=== PATIENT | male | born 1960 | race African-American/Black ===

== ENCOUNTER 2017-08-28 15:18 | Emergency (ER) | payer MEDICAID ==
[~2017-08-28] VITALS: Ht 172.7 cm; Wt 63.5 kg
[2017-08-28 15:29] VITALS: BP 149/81
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
[2017-08-28] MEDS ORDERED: Methocarbamol 500mg tab ORAL ONE (16:00)
[2017-08-28] MEDS ORDERED: Acetaminophen 500mg (ES) tab ORAL ONE (16:00)
[2017-08-28] MEDS ORDERED: IBUPROFEN600 MG ORAL (16:10)
[2017-08-28] MEDS ORDERED: LIDOCAINE700 M1 TP (16:10)
[2017-08-28] MEDS ORDERED: METHOCARBAMOL500 MG ORAL (16:10)
[2017-08-28 17:20] VITALS: BP 149/81
== END 2017-08-28 17:20 | disposition home or self-care (01) ==
LOC: EMR 16:01
DX: M54.2 Cervicalgia (principal); M54.6 Pain in thoracic spine; V43.62XA Car passenger injured in collision with other type car in traffic accident, initial encounter; Y92.410 Unspecified street and highway as the place of occurrence of the external cause
CPT/HCPCS: 99284

== ENCOUNTER 2018-11-15 10:25 | Inpatient (IN) | payer MEDICAID, OTHER ==
[~2018-11-15] VITALS: Ht 172.7 cm; Wt 67.2 kg
--- NOTE | 2018-11-15 09:20 | NUR ---
NURSE NOTES: third unit of RBS being administered. will continue to monitor for transfusion reaction.
[~2018-11-15 10:25] MED LIST: IBUPROFEN600 MG ORAL; LIDOCAINE700 M1 TP; METHOCARBAMOL500 MG ORAL
--- NOTE | 2018-11-15 10:31 | NUR ---
ED Nurse Note: not found in waiting area.
[2018-11-15] MEDS ORDERED: NKM (10:39)
[2018-11-15 10:40] VITALS: BP 126/64
--- NOTE | 2018-11-15 10:40 | NUR ---
ED Nurse Note: PT WALKED IN TO ER TODAY FROM HOME. AOX4. PT C/O CHRONIC POSTERIOR NECK PAIN, 01/15. PT ALSO STATES HE HAS BEEN UNABLE TO MOVE HIS NECK UP X LAST WEEK. PT STATES HE WENT TO SEE HIS PMD FOR THIS LAST WEEK AND WAS TOLD TO GO TO THE ER FOR TREATMENT. PT PRESENTS WITH LARGE OPEN WOUND TO UPPER MEDIAL BACK/POSTERIOR LOWER NECK WHICH PT STATES HAS BEEN THERE FOR 3 YEARS. NO ACTIVE BLEEDING OR DRAINAGE NOTED. PT STATES IT STARTED A SKIN INFECTION BUT THAT HE NEVER WENT TO GET IT CHECKED.
[2018-11-15] MEDS ORDERED: ceFAZolin 1gm/50ml Premix 50 ML IV ONE (10:45)
[2018-11-15 11:06] LABS: HEMATOCRIT 15.3 % (42.0-52.0); MEAN CORPUSCULAR VOLUME 49 FL (80-99); PLATELET COUNT 428 K/UL (150-450); RED BLOOD COUNT 3.12 M/UL (4.70-6.10); WHITE BLOOD COUNT 8.2 K/UL (4.8-10.8)
--- NOTE | 2018-11-15 11:06 | NUR ---
ED Nurse Note: PT TO XRAY VIA [facility].
[2018-11-15 11:12] LABS: HEMOGLOBIN 3.7 G/DL (14.2-18.0)
--- NOTE | 2018-11-15 11:15 | NUR ---
ED Nurse INFORMED DR. NEWELL REGARDING THE H&H OF THE PT. UPGRADED FROM MS TO TELE
--- NOTE | 2018-11-15 11:20 | NUR ---
ED Nurse Note: EDWCP UPLOADED TO EMR.
--- NOTE | 2018-11-15 11:34 | NUR ---
ED Nurse Note: PT BACK FROM [facility]IA [facility].
[2018-11-15 11:52] LABS: ANION GAP 7 mmol/L (5-15); BLOOD UREA NITROGEN 12 mg/dL (7-18); CALCIUM 8.6 MG/DL (8.5-10.1); CARBON DIOXIDE 27 MMOL/L (21-32); CHLORIDE 100 MMOL/L (98-107); CREATININE 1.5 MG/DL (0.55-1.30); POTASSIUM 3.9 MMOL/L (3.5-5.1); SODIUM 134 MMOL/L (136-145)
[2018-11-15 11:56] LABS: ALANINE AMINOTRANSFERASE 12 U/L (12-78); ALKALINE PHOSPHATASE 57 U/L (46-116); ASPARTATE AMINO TRANSFERASE 12 U/L (15-37); BILIRUBIN,TOTAL 0.4 MG/DL (0.2-1.0)
[2018-11-15 12:01] VITALS: BP 118/59
[2018-11-15 12:01] LABS: ALBUMIN 2.6 G/DL (3.4-5.0)
--- NOTE | 2018-11-15 12:01 | Diagnostic Imaging Report ---
Indication: Cellulitis and the large ulceration in the posterior part of the neck. Findings: 3 views of the cervical spine were obtained. Technically the study is limited due to hyper flexion. The open-mouth views are nondiagnostic. There is a large area of soft tissue lucency injected the the posterior part of the neck at the level of the mid to lower cervical spine. The lucency is consistent with the given history of ulceration. There is adjacent surrounding soft tissue swelling. Findings consistent with cellulitis. There is generalized osseous demineralization noted. The cortical surface spinous processes are ill-defined and irregular as well. Not certain if this is in part degenerative or due to osteomyelitis. MRI could be done for further evaluation as warranted clinically. There is longitudinally oriented ossification projected over the spinous processes which may be ossification of the ligaments. Part of this could be on the basis of previous trauma. Moderate degenerative disease of the cervical spine noted. The patient's neck is flexed and as such the study is very limited with regard to evaluation for trauma. There is no history of trauma.. IMPRESSION: Very limited study due to flexion of the neck and suboptimal open mouth views. Large area of ulceration and evidence of cellulitis in the posterior part of the neck. Difficult to exclude possibility of osteomyelitis involving the posterior elements in the lower part of the cervical spine.
[2018-11-15 13:00] LABS: HEMATOCRIT 14.6 % (42.0-52.0); MEAN CORPUSCULAR VOLUME 49 FL (80-99); PLATELET COUNT 396 K/UL (150-450); RED BLOOD COUNT 2.99 M/UL (4.70-6.10); RED CELL DISTRIBUTION WIDTH 14.6 % (11.6-14.8); WHITE BLOOD COUNT 8.7 K/UL (4.8-10.8)
[2018-11-15 13:01] LABS: HEMOGLOBIN 3.6 G/DL (14.2-18.0)
[2018-11-15 13:46] VITALS: BP 114/62
--- NOTE | 2018-11-15 14:02 | Emergency Room Report ---
History of Present Illness General Chief Complaint: Wound Recheck/Suture Removal Source: Patient Present Illness HPI Patient is a poor historian. Patient has a history of a wound in his upper back and neck area. This is a chronic ulcer that is not healing. Patient states is progressively become worse. He does not have outpatient follow-up. States that he is not getting treatment with outpatient wound management. States that symptoms getting worse. In addition he complains of weakness. He denies any fever nausea vomiting diarrhea chills. No other complaints are noted. Symptoms noted to be moderate. No other modifying factors. No other associated signs and symptoms. No other complaints were noted. Allergies: Coded Allergies: No Known Allergies (Unverified , 08/28/17) Patient History Past Medical History: none, other - Chronic wound ulcer and neck and back Past Surgical History: none Pertinent Family History: none Social History: Denies: smoking, alcohol use, drug use Reviewed Nursing Documentation: PMH: Agreed; PSxH: Agreed Nursing Documentation-PMH Past Medical History: No Stated History Review of Systems All Other Systems: negative except mentioned in HPI Physical Exam Vital Signs Date Time Temp Pulse Resp B/P (MAP) Pulse Ox O2 Delivery O2 Flow Rate FiO2 11/15/18 10:37 97.9 115 18 132/61 (84) 98 Room Air Sp02 EP Interpretation: reviewed, normal General Appearance: alert Head: atraumatic Eyes: bilateral eye normal inspection ENT: normal ENT inspection, hearing grossly normal, normal voice, other - Pale mucous membranes Neck: normal inspection, full range of motion, supple, no bony tend Respiratory: normal inspection, lungs clear, normal breath sounds, no respiratory distress, no retraction, no wheezing Cardiovascular #1: regular rate, rhythm, no edema Gastrointestinal: normal inspection, normal bowel sounds, non tender, soft, no guarding, no hernia Genitourinary: no CVA tenderness Musculoskeletal: normal inspection, back normal, normal range of motion Neurologic: normal inspection, alert, responsive, speech normal Psychiatric: normal inspection, judgement/insight normal, mood/affect normal Skin: pallor Procedures Critical Care Time Critical Care Time Patient had a critical medical condition which untreated could potentially result in life or limb threatening injury. Total critical care time excluding procedures was approximately 45 minutes. Medical Decision Making Diagnostic Impression: Primary Impression: Anemia Additional Impressions: Wound cellulitis Failure to thrive ER Course Patient presents emergency department today with a wound in his back. Differential considerations include cellulitis, abscess, chronic ulcer just name a few. The wound is rather large. Laboratory work-up shows severe anemia. Because of anemia patient will require admission. Patient is unfortunately in stable for transfer because hemoglobin 3.7. Case was discussed in detail with Dr. Reddy. Patient was started on emergent transfusion. Patient will be admitted to telemetry for the treatment. Labs Test 11/15/18 10:50 11/15/18 12:48 White Blood Count 8.2 K/UL (4.8-10.8) 8.7 K/UL (4.8-10.8) Red Blood Count 3.12 M/UL (4.70-6.10) 2.99 M/UL (4.70-6.10) Hemoglobin 3.7 G/DL (14.2-18.0) 3.6 G/DL (14.2-18.0) Hematocrit 15.3 % (42.0-52.0) 14.6 % (42.0-52.0) Mean Corpuscular Volume 49 FL (80-99) 49 FL (80-99) Mean Corpuscular Hemoglobin 12.0 PG (27.0-31.0) 11.9 PG (27.0-31.0) Mean Corpuscular Hemoglobin Concent 24.5 G/DL (32.0-36.0) 24.4 G/DL (32.0-36.0) Red Cell Distribution Width 15.0 % (11.6-14.8) 14.6 % (11.6-14.8) Platelet Count 428 K/UL (150-450) 396 K/UL (150-450) Mean Platelet Volume 5.0 FL (6.5-10.1) 5.5 FL (6.5-10.1) Neutrophils (%) (Auto) % (45.0-75.0) % (45.0-75.0) Lymphocytes (%) (Auto) % (20.0-45.0) % (20.0-45.0) Monocytes (%) (Auto) % (1.0-10.0) % (1.0-10.0) Eosinophils (%) (Auto) % (0.0-3.0) % (0.0-3.0) Basophils (%) (Auto) % (0.0-2.0) % (0.0-2.0) Differential Total Cells Counted 100 100 Neutrophils % (Manual) 70 % (45-75) 71 % (45-75) Lymphocytes % (Manual) 18 % (20-45) 18 % (20-45) Monocytes % (Manual) 11 % (1-10) 10 % (1-10) Eosinophils % (Manual) 1 % (0-3) 1 % (0-3) Basophils % (Manual) 0 % (0-2) 0 % (0-2) Band Neutrophils 0 % (0-8) 0 % (0-8) Platelet Estimate Adequate Adequate Platelet Morphology Normal Normal Hypochromasia 3+ 3+ Anisocytosis 1+ 1+ Microcytosis 3+ 3+ Sodium Level 134 MMOL/L (136-145) Potassium Level 3.9 MMOL/L (3.5-5.1) Chloride Level 100 MMOL/L (98-107) Carbon Dioxide Level 27 MMOL/L (21-32) Anion Gap 7 mmol/L (5-15) Blood Urea Nitrogen 12 mg/dL (7-18) Creatinine 1.5 MG/DL (0.55-1.30) Estimat Glomerular Filtration Rate 58.1 mL/min (>60) Glucose Level 98 MG/DL (74-106) Calcium Level 8.6 MG/DL (8.5-10.1) Total Bilirubin 0.4 MG/DL (0.2-1.0) Aspartate Amino Transf (AST/SGOT) 12 U/L (15-37) Alanine Aminotransferase (ALT/SGPT) 12 U/L (12-78) Alkaline Phosphatase 57 U/L (46-116) Total Protein 8.2 G/DL (6.4-8.2) Albumin 2.6 G/DL (3.4-5.0) Globulin 5.6 g/dL EKG Diagnostic Results Rate: normal Rhythm: NSR ST Segments: no acute changes Rhythm Strip Diag. Results EP Interpretation: yes Rate: 80s Rhythm: NSR, no PVC's, no ectopy Other X-Ray Diagnostic Results Other X-Ray Diagnostic Results : # of Views/Limited Vs Complete: 2 View Indication: Pain EP Interpretation: No Impression: Other - C-spine does not show any osteomyelitis Last Vital Signs Date Time Temp Pulse Resp B/P (MAP) Pulse Ox O2 Delivery O2 Flow Rate FiO2 11/15/18 13:46 97.1 72 12 114/62 100 Room Air Status: improved Disposition: ELOPED Condition: Serious Referrals: NON PHYSICIAN (PCP) Hiro Sales MD Nov 15, 2018 14:01
--- NOTE | 2018-11-15 14:08 | NUR ---
ED Nurse Note: TELE UNIT CALLED FOR PT TRANSFER. REPORT GIVEN TO ANN GUAJARDO. PT TAKEN UP TO TELE UNIT VIA GURNEY ON IN FLIGHT TECHNICIAN AND ALL BELONGINGS RUNNING BLOOD. PT ACCOMPANIED BY PRIMARY RN AND EMT. VSS. TRANSFUSION COMPLETION ENDORSED TO RECEIVING CASANDRA JUAREZ.
[2018-11-15 14:48] VITALS: BP 122/61
--- NOTE | 2018-11-15 15:07 | GI Initial Consult Note ---
History of Present Illness General Date patient seen: Nov 15, 2018 Time patient seen: 14:59 Reason for Hospitalization: Wound Recheck/Suture Removal Referring physician: CHALO Reason for Consultation: SEVERE ANEMIA Present Illness HPI Patient is a poor historian. Patient has a history of a wound in his upper back and neck area. This is a chronic ulcer that is not healing. Patient states is progressively become worse. He does not have outpatient follow-up. States that he is not getting treatment with outpatient wound management. States that symptoms getting worse. In addition he complains of weakness. He denies any fever nausea vomiting diarrhea chills. No other complaints are noted. Symptoms noted to be moderate. No other modifying factors. No other associated signs and symptoms. No other complaints were noted. GI consulted for severe anemia., Awake alert and oriented x3 no apparent distress. The patient presents with a low hemoglobin of 3.6. The patient denies any active signs or symptoms of blood loss. Denies any hematemesis or coffee grounds. Denies any hematochezia or melena. He states his last colonoscopy and endoscopy was approximately 2 to 3 years ago, which he stated that there was insignificant findings. The patient denies any drug use, alcohol use. States that he is a tobacco user. Diminished soft, nontender, nondistended. Home Meds Active Scripts Methocarbamol* (METHOCARBAMOL*) 500 Mg Tablet, 500 MG ORAL TID PRN for For Pain , #15 TAB 0 Refills Prov:Roscoe Bianchi.A. 08/28/17 Lidocaine (Lidocaine) 1 Each Adh..patch, 700 MG TP DAILY for 7 Days, #7 PATCH Prov:Roscoe Bianchi.Guillermo 08/28/17 Ibuprofen* (MOTRIN*) 600 Mg Tablet, 600 MG ORAL Q8H PRN for For Pain, #30 TAB 0 Refills Prov:Roscoe Bianchi.A. 08/28/17 Reported Medications No Known Medications* (NKM - No Known Medications*) ., 0 ., 0 Refills 11/15/18 Med list reviewed/reconciled: Yes Allergies: Coded Allergies: No Known Allergies (Unverified , 08/28/17) Patient History Limited by: medical condition History Provided By: Patient, Medical Record [facility] Narrative Past Medical History: none, other - Chronic wound ulcer and neck and back Past Surgical History: none Pertinent Family History: none Social History: Denies: smoking, alcohol use, drug use Reviewed Nursing Documentation: PMH: Agreed; PSxH: Agreed Nursing Documentation-PMH Past Medical History: No Stated History Social History: Reports: smoking Review of Systems All Other Systems: negative except mentioned in HPI Physical Exam Vital Signs Date Time Temp Pulse Resp B/P (MAP) Pulse Ox O2 Delivery O2 Flow Rate FiO2 11/15/18 10:37 97.9 115 18 132/61 (84) 98 Room Air Sp02 EP Interpretation: reviewed, normal Labs Laboratory Tests Test 11/15/18 10:50 11/15/18 12:48 White Blood Count 8.2 K/UL (4.8-10.8) 8.7 K/UL (4.8-10.8) Red Blood Count 3.12 M/UL (4.70-6.10) L 2.99 M/UL (4.70-6.10) L Hemoglobin 3.7 G/DL (14.2-18.0) *L 3.6 G/DL (14.2-18.0) *L Hematocrit 15.3 % (42.0-52.0) L 14.6 % (42.0-52.0) L Mean Corpuscular Volume 49 FL (80-99) L 49 FL (80-99) L Mean Corpuscular Hemoglobin 12.0 PG (27.0-31.0) L 11.9 PG (27.0-31.0) L Mean Corpuscular Hemoglobin Concent 24.5 G/DL (32.0-36.0) L 24.4 G/DL (32.0-36.0) L Red Cell Distribution Width 15.0 % (11.6-14.8) H 14.6 % (11.6-14.8) Platelet Count 428 K/UL (150-450) 396 K/UL (150-450) Mean Platelet Volume 5.0 FL (6.5-10.1) L 5.5 FL (6.5-10.1) L Neutrophils (%) (Auto) % (45.0-75.0) % (45.0-75.0) Lymphocytes (%) (Auto) % (20.0-45.0) % (20.0-45.0) Monocytes (%) (Auto) % (1.0-10.0) % (1.0-10.0) Eosinophils (%) (Auto) % (0.0-3.0) % (0.0-3.0) Basophils (%) (Auto) % (0.0-2.0) % (0.0-2.0) Differential Total Cells Counted 100 100 Neutrophils % (Manual) 70 % (45-75) 71 % (45-75) Lymphocytes % (Manual) 18 % (20-45) L 18 % (20-45) L Monocytes % (Manual) 11 % (1-10) H 10 % (1-10) Eosinophils % (Manual) 1 % (0-3) 1 % (0-3) Basophils % (Manual) 0 % (0-2) 0 % (0-2) Band Neutrophils 0 % (0-8) 0 % (0-8) Platelet Estimate Adequate Adequate Platelet Morphology Normal Normal Hypochromasia 3+ 3+ Anisocytosis 1+ 1+ Microcytosis 3+ 3+ Sodium Level 134 MMOL/L (136-145) L Potassium Level 3.9 MMOL/L (3.5-5.1) Chloride Level 100 MMOL/L (98-107) Carbon Dioxide Level 27 MMOL/L (21-32) Anion Gap 7 mmol/L (5-15) Blood Urea Nitrogen 12 mg/dL (7-18) Creatinine 1.5 MG/DL (0.55-1.30) H Estimat Glomerular Filtration Rate 58.1 mL/min (>60) Glucose Level 98 MG/DL (74-106) Calcium Level 8.6 MG/DL (8.5-10.1) Total Bilirubin 0.4 MG/DL (0.2-1.0) Aspartate Amino Transf (AST/SGOT) 12 U/L (15-37) L Alanine Aminotransferase (ALT/SGPT) 12 U/L (12-78) Alkaline Phosphatase 57 U/L (46-116) Total Protein 8.2 G/DL (6.4-8.2) Albumin 2.6 G/DL (3.4-5.0) L Globulin 5.6 g/dL General Appearance: well appearing, no apparent distress, alert, thin Head: normocephalic EENT: PERRL/EOMI, normal ENT inspection Neck: supple Respiratory: normal breath sounds, no respiratory distress Cardiovascular: normal rate Gastrointestinal: normal inspection, non tender, soft, normal bowel sounds, non -distended Rectal: deferred Genitourinary: deferred Musculoskeletal: normal inspection, back normal Neurologic: normal inspection, alert, oriented x3, responsive Psychiatric: normal inspection, judgement/insight normal, memory normal Skin: normal inspection, normal color, no rash, warm/dry, palpation normal, well hydrated Lymphatic: normal inspection, no adenopathy GI: Plan Problems: (1) Anemia (2) Failure to thrive Plan Plan to schedule patient for EGD and colonoscopy when hemodynamically stable. Okay to advance diet anemia work up OB stool r/o GI bleed monitor H&H, prn transfusions bowel regimen ppi fu labs Discussed with Dr. Phelps. Thank you for this patient referral, we will follow. The patient was seen and examined at bedside and all new and available data was reviewed in the patients chart. I agree with the above findings, impression and plan. (Patient seen earlier today. Signature stamp does not reflect patient encounter time.). - MD Hanny AyalaBanner Md Anderson Cancer CenterTanvi CHURCH Nov 15, 2018 15:07
--- NOTE | 2018-11-15 15:29 | NUR ---
NURSE NOTES: Pt admitted to 2E Telemetry unit from ED at 1425 via gurney. Pt assisted to bed, belongings reviewed with pt, RN and ED RN Logan, all belongings accounted for. Pt received blood transfusion for hgb 3.6, back running at 150cc/hr, well tolerated, no reaction noted. 1441: Wound care done on open wound to posterior neck, cleansed with NS, cavillon applied to amanda-wound, covered with Optifoam. 1442: Vitals obtained and assessment done, see flowsheets. Pt A/Ox 4, flat affect, pain in back of neck 01/15, no apparent respiratory distress noted. 1526: Called Dr. Greene for admission orders, Dr. Greene stated he will call back
[2018-11-15 16:00] VITALS: BP 112/58
[2018-11-15] MEDS: Morphine Sulfate 2mg/ml Inj(IV/IM USE ONLY) IVP PRN (17:44)
--- NOTE | 2018-11-15 19:37 | NUR ---
HAND-OFF: Report given to ANN Tillman.
--- NOTE | 2018-11-15 19:40 | NUR ---
NURSE NOTES: Received pt from day shift nurse. pt in bed resting. no c/o pain. no acute distress noted. pt receiving second unit of blood no change in condition, no reaction noted. pt with wound located at right neck and upper back covered with dressing. bed locked and lowest position, side rail up x2. call light within reach. education provided about using call light if needing help, pt verbalized understanding. will continue to monitor for change in condition
[2018-11-15 20:00] VITALS: BP 108/59
--- NOTE | 2018-11-15 21:00 | NUR ---
NURSE NOTES: second unit of RBS completed, no s/s of transfusion reaction, VS wnl acording to pt's VS. will administer last unit of blood.
--- NOTE | 2018-11-15 22:07 | Consultation ---
History of Present Illness General Date patient seen: Nov 15, 2018 Reason for Hospitalization: Wound Recheck/Suture Removal Present Illness HPI 58 year old male presented to [facility] with complaints of neck wound that is causing discomfort and not healing. states he cannot recall how he obtained it and states it has been present for over 1 year. does not recall prior intervention and does not have regular care of wound. history limited. noted to be very anemic. admitted for care and management. surgery called to evaluate and assist with care. patient seen, chart reviewed, patient examined. Allergies: Coded Allergies: No Known Allergies (Unverified , 08/28/17) Medication History Scheduled Lidocaine (Lidocaine), 700 MG TP DAILY No Known Medications* (NKM - No Known Medications*), 0 ., (Reported) Scheduled PRN Ibuprofen* (Motrin*), 600 MG ORAL Q8H PRN for For Pain Methocarbamol* (Methocarbamol*), 500 MG ORAL TID PRN for For Pain Patient History History Provided By: Patient, Medical Record, PMD Healthcare decision maker Resuscitation status Full Code Advanced Directive on File No Past Medical/Surgical History Past Medical/Surgical History: (1) Failure to thrive (2) Wound cellulitis (3) Wound infection (4) Anemia (5) ESRD (end stage renal disease) on dialysis Review of Systems Review of Symptoms General ROS: no weight loss or fever Psychological ROS: no depression or mood changes, no memory loss Ophthalmic ROS: no visual changes or eye irritation ENT ROS: no nasal congestion, hearing loss, dizziness Allergy and Immunology ROS: no allergic symptoms or urticaria Hematological and Lymphatic ROS: no swollen glands, unusual bleeding or bruising Endocrine ROS: no polyuria, polydipsia, weight changes, temperature intolerance Respiratory ROS: no cough, shortness of breath, or wheezing Cardiovascular ROS: no chest pain or dyspnea on exertion Gastrointestinal ROS: denies abdominal pain, no bright red blood in stool. Musculoskeletal ROS: no myalgias or arthralgias Neurological ROS: no TIA or stroke symptoms Dermatological ROS: no new or changing skin lesions, rashes or pruritis Physical Exam Physical Exam General appearance: alert, cooperative, no distress, appears stated age Head: Normocephalic, without obvious abnormality, atraumatic Eyes: conjunctivae/corneas clear. PERRL, EOM's intact. Fundi benign Throat: Lips, mucosa, and tongue normal. Teeth and gums normal Neck: supple, symmetrical, trachea midline, no adenopathy, thyroid: not enlarged, symmetric, no tenderness/mass/nodules, no carotid bruit and no JVD. large posterior right neck wound extending from upper neck to upper back. wound with sloth and poor healing. Lungs: clear to auscultation bilaterally Heart: regular rate and rhythm, S1, S2 normal, no murmur, click, rub or gallop Abdomen: soft, non-tender. Bowel sounds normal. No masses, no organomegaly Extremities: extremities normal, atraumatic, no cyanosis or edema Pulses: 2+ and symmetric Skin: Skin color, texture, turgor normal. No rashes or lesions Neurologic: Grossly normal Last 24 Hour Vital Signs Date Time Temp Pulse Resp B/P (MAP) Pulse Ox O2 Delivery O2 Flow Rate FiO2 11/15/18 20:00 78 11/15/18 20:00 98.2 79 20 108/59 (75) 98 11/15/18 18:14 99.8 11/15/18 16:00 99.8 71 20 112/58 (76) 98 11/15/18 15:35 71 11/15/18 15:18 Room Air 11/15/18 14:48 97.7 71 16 122/61 (81) 99 11/15/18 14:08 97.2 72 13 115/70 100 Room Air 11/15/18 13:46 97.1 72 12 114/62 100 Room Air 11/15/18 12:01 98.0 76 11 118/59 100 Room Air 11/15/18 10:40 98.0 96 16 126/64 99 Room Air 11/15/18 10:37 97.9 115 18 132/61 (84) 98 Room Air Laboratory Tests Test 11/15/18 10:50 11/15/18 12:48 White Blood Count 8.2 K/UL (4.8-10.8) 8.7 K/UL (4.8-10.8) Red Blood Count 3.12 M/UL (4.70-6.10) L 2.99 M/UL (4.70-6.10) L Hemoglobin 3.7 G/DL (14.2-18.0) *L 3.6 G/DL (14.2-18.0) *L Hematocrit 15.3 % (42.0-52.0) L 14.6 % (42.0-52.0) L Mean Corpuscular Volume 49 FL (80-99) L 49 FL (80-99) L Mean Corpuscular Hemoglobin 12.0 PG (27.0-31.0) L 11.9 PG (27.0-31.0) L Mean Corpuscular Hemoglobin Concent 24.5 G/DL (32.0-36.0) L 24.4 G/DL (32.0-36.0) L Red Cell Distribution Width 15.0 % (11.6-14.8) H 14.6 % (11.6-14.8) Platelet Count 428 K/UL (150-450) 396 K/UL (150-450) Mean Platelet Volume 5.0 FL (6.5-10.1) L 5.5 FL (6.5-10.1) L Neutrophils (%) (Auto) % (45.0-75.0) % (45.0-75.0) Lymphocytes (%) (Auto) % (20.0-45.0) % (20.0-45.0) Monocytes (%) (Auto) % (1.0-10.0) % (1.0-10.0) Eosinophils (%) (Auto) % (0.0-3.0) % (0.0-3.0) Basophils (%) (Auto) % (0.0-2.0) % (0.0-2.0) Differential Total Cells Counted 100 100 Neutrophils % (Manual) 70 % (45-75) 71 % (45-75) Lymphocytes % (Manual) 18 % (20-45) L 18 % (20-45) L Monocytes % (Manual) 11 % (1-10) H 10 % (1-10) Eosinophils % (Manual) 1 % (0-3) 1 % (0-3) Basophils % (Manual) 0 % (0-2) 0 % (0-2) Band Neutrophils 0 % (0-8) 0 % (0-8) Platelet Estimate Adequate Adequate Platelet Morphology Normal Normal Hypochromasia 3+ 3+ Anisocytosis 1+ 1+ Microcytosis 3+ 3+ Sodium Level 134 MMOL/L (136-145) L Potassium Level 3.9 MMOL/L (3.5-5.1) Chloride Level 100 MMOL/L (98-107) Carbon Dioxide Level 27 MMOL/L (21-32) Anion Gap 7 mmol/L (5-15) Blood Urea Nitrogen 12 mg/dL (7-18) Creatinine 1.5 MG/DL (0.55-1.30) H Estimat Glomerular Filtration Rate 58.1 mL/min (>60) Glucose Level 98 MG/DL (74-106) Calcium Level 8.6 MG/DL (8.5-10.1) Total Bilirubin 0.4 MG/DL (0.2-1.0) Aspartate Amino Transf (AST/SGOT) 12 U/L (15-37) L Alanine Aminotransferase (ALT/SGPT) 12 U/L (12-78) Alkaline Phosphatase 57 U/L (46-116) Total Protein 8.2 G/DL (6.4-8.2) Albumin 2.6 G/DL (3.4-5.0) L Globulin 5.6 g/dL Height (Feet): 5 Height (Inches): 8.00 Weight (Pounds): 120 Medications Current Medications Medications (Trade) Dose Ordered Sig/Charla Route PRN Reason Start Time Stop Time Status Last Admin Dose Admin Dextrose (Dextrose 50%) 25 ml Q30M PRN IV Hypoglycemia 11/15/18 17:30 12/15/18 17:29 Dextrose (Dextrose 50%) 50 ml Q30M PRN IV Hypoglycemia 11/15/18 17:30 12/15/18 17:29 Famotidine (Pepcid) 40 mg DAILY ORAL 11/16/18 09:00 12/16/18 08:59 Levofloxacin 50 ml @ 50 mls/hr Q24H IVPB 11/16/18 18:00 11/23/18 17:59 Morphine Sulfate (Morphine Sulfate) 1 mg Q4H PRN IVP For Pain 11/15/18 17:30 11/22/18 17:29 11/15/18 17:44 Ondansetron HCl (Zofran) 4 mg Q6H PRN IVP Nausea & Vomiting 11/15/18 17:30 12/15/18 17:29 Sodium Chloride 1,000 ml @ 100 mls/hr Q10H IV 11/15/18 17:00 12/15/18 16:59 11/15/18 17:21 Vancomycin HCl (Vanco rx to dose) 1 ea DAILY PRN MISC Per rx protocol 11/15/18 17:00 12/15/18 16:59 Assessment/Plan Problem List: (1) Failure to thrive SNOMED: 65770767 (2) Wound cellulitis Assessment & Plan: 58M with posterior neck wound that is chronic non healing and with chronic cellulitis. etiology of wound not know and patient poor historian in regards to wound large area wound open very unfortunate case with large wound that has gone without care for so long for now recommend washing wound with saline daily, apply xeroform, hydrogel, and abd dressing. will monitor wound while in hospital will need long tern outpatient wound care IV Abx ICD Codes: L03.90 - Cellulitis, unspecified SNOMED: 463670764 (3) Anemia Assessment & Plan: transfuse prn trend h/h appreciate GI input ICD Codes: D64.9 - Anemia, unspecified SNOMED: 309515342 (4) Wound infection ICD Codes: T14.8XXA - Other injury of unspecified body region, initial encounter; L08.9 - Local infection of the skin and subcutaneous tissue, unspecified SNOMED: 69543185 (5) ESRD (end stage renal disease) on dialysis ICD Codes: N18.6 - End stage renal disease; Z99.2 - Dependence on renal dialysis SNOMED: 332020341 Jarod Lala Nov 15, 2018 22:07
--- NOTE | 2018-11-15 23:00 | Consultation ---
DATE OF CONSULTATION: 11/15/2018 REASON FOR CONSULTATION: 1. Acute kidney injury 2. Severe anemia. HISTORY OF PRESENT ILLNESS: The patient is a 58-year-old gentleman who is admitted for further evaluation and care of severe anemia, found to have a hemoglobin of 3.6 and a creatinine of 1.5. The patient is also complaining of back and neck cellulitis for approximately one year. He denies any current chest pain. He is mildly short of breath with exertion. PAST MEDICAL HISTORY: Chronic wound in the neck and back area. PAST SURGICAL HISTORY: Denies. FAMILY HISTORY: Denies. SOCIAL HISTORY: Denies any tobacco, alcohol, or illicit drug use. REVIEW OF SYSTEMS: NEUROLOGIC: The patient denies headache, change in vision, syncope, or presyncopal episodes. CARDIOVASCULAR: No current chest pain, palpitations, or angina. PULMONARY: Mild shortness of breath. Nonproductive cough. GASTROINTESTINAL/GENITOURINARY: No change in urine or bowel habits. No nausea, vomiting, or injury. ENDOCRINOLOGY: No night sweats, fevers, or chills. PHYSICAL EXAMINATION: VITAL SIGNS: Blood pressure 112/58, 98% oxygen saturation on room air, respiratory rate 20, pulse 71, and temperature 99.9. GENERAL: The patient awake and alert, not otherwise in distress. HEENT: Extraocular muscles intact. No lymphadenopathy noted. Oropharyngeal mucosa is clear and dry. CARDIOVASCULAR: S1, S2. No rubs or gallops. PULMONARY: Clear to auscultation bilaterally. No rales, rhonchi, or wheezes. ABDOMINAL: Nondistended and nontender. EXTREMITIES: No edema noted. Noted neck and back excoriation and infection. LABORATORY DATA: Laboratories dated 11/15/2018, white cell count 8.2, hemoglobin 3.6, and platelet count 396,000. Creatinine 1.5, potassium 3.9, sodium 134, and bicarb 27. ASSESSMENT AND PLAN: 1. Acute kidney injury. At this time, most likely secondary to severe intravascular volume depletion from anemia and dehydration. The patient had received 3 units of total PRBCs and will initiate IV fluids. Recheck BMP in a.m. 2. Sepsis with neck and back infection. The patient will be placed on IV antibiotics. 3. Severe anemia. The patient received blood transfusion. Gastroenterology to do panendoscopy. 4. Electrolyte abnormalities. We will replace as deemed appropriate. Let me take this opportunity to thank Dr. Greene. Urbano Holbrook MD DR: ABE JOB#: [id number] CC:
--- NOTE | 2018-11-16 | NUR ---
NURSE NOTES: last unit of blood administered, no change in condition, no transfusion reaction. pt in bed no c/o pain. will continue to monitor pt for change in condition.
--- NOTE | 2018-11-16 01:45 | NUR ---
NURSE NOTES: stool collected at this time for stool OB. dropped specimen in lab.
[2018-11-16 04:00] VITALS: BP 114/68
--- NOTE | 2018-11-16 04:00 | NUR ---
NURSE NOTES: pt sleeping, no change in condition. will continue to monitor for any change in condition.
[2018-11-16] MEDS: Morphine Sulfate 2mg/ml Inj(IV/IM USE ONLY) IVP PRN ×2 (04:31→09:23)
--- NOTE | 2018-11-16 06:26 | NUR ---
NURSE NOTES: pt remains stable. no change in condition. no c/o pain. all needs met during my shift. wound on right neck covered with dressing. bed locked and lowest position. side rail up x2. call light within reach. will endorse plan of care to incoming Nurse.
[2018-11-16 06:27] LABS: HEMATOCRIT 24.6 % (42.0-52.0); HEMOGLOBIN 7.3 G/DL (14.2-18.0); MEAN CORPUSCULAR VOLUME 62 FL (80-99); PLATELET COUNT 438 K/UL (150-450); RED BLOOD COUNT 3.96 M/UL (4.70-6.10); RED CELL DISTRIBUTION WIDTH 32.5 % (11.6-14.8); WHITE BLOOD COUNT 8.6 K/UL (4.8-10.8)
[2018-11-16 07:01] LABS: ALANINE AMINOTRANSFERASE 8 U/L (12-78); ALBUMIN 2.2 G/DL (3.4-5.0); ALBUMIN/GLOBULIN RATIO 0.4 (1.0-2.7); ALKALINE PHOSPHATASE 55 U/L (46-116); ANION GAP 10 mmol/L (5-15); ASPARTATE AMINO TRANSFERASE 11 U/L (15-37); BILIRUBIN,TOTAL 1.6 MG/DL (0.2-1.0); BLOOD UREA NITROGEN 11 mg/dL (7-18); CALCIUM 8.8 MG/DL (8.5-10.1); CARBON DIOXIDE 24 MMOL/L (21-32); CHLORIDE 104 MMOL/L (98-107); CREATININE 1.5 MG/DL (0.55-1.30); FERRITIN 9 NG/ML (8-388); POTASSIUM 4.2 MMOL/L (3.5-5.1); SODIUM 138 MMOL/L (136-145)
[2018-11-16 07:09] LABS: BILIRUBIN,DIRECT 0.3 MG/DL (0.0-0.3)
--- NOTE | 2018-11-16 07:12 | Nephrology Progress Note ---
Assessment/Plan Assessment/Plan: A/P 1) DELMAR vs CKD 3B- Cr 1.5 - could be due to severe volume depletion/anemia - Cr stable at 1.5 - monitor for now and avoid nephrotoxins 2) Severe Anemia- s/p 3 Units PRBS, GI to evaluate 3) Dehydration- continue IVFs Subjective Date patient seen: Nov 16, 2018 Time patient seen: 07:10 ROS Limited/Unobtainable: No Allergies: Coded Allergies: No Known Allergies (Unverified , 08/28/17) Subjective Patient without complaints. No CP or SOB Objective Last 24 Hour Vital Signs Date Time Temp Pulse Resp B/P (MAP) Pulse Ox O2 Delivery O2 Flow Rate FiO2 11/16/18 04:00 72 11/16/18 04:00 98.0 73 20 114/68 (83) 97 11/16/18 00:00 78 11/15/18 21:00 Room Air 11/15/18 20:00 78 11/15/18 20:00 98.2 79 20 108/59 (75) 98 11/15/18 18:14 99.8 11/15/18 16:00 99.8 71 20 112/58 (76) 98 11/15/18 15:35 71 11/15/18 15:18 Room Air 11/15/18 14:48 97.7 71 16 122/61 (81) 99 11/15/18 14:08 97.2 72 13 115/70 100 Room Air 11/15/18 13:46 97.1 72 12 114/62 100 Room Air 11/15/18 12:01 98.0 76 11 118/59 100 Room Air 11/15/18 10:40 98.0 96 16 126/64 99 Room Air 11/15/18 10:37 97.9 115 18 132/61 (84) 98 Room Air Intake and Output 11/15/18 11/16/18 19:00 07:00 Intake Total 410 ml 1365 ml Output Total 600 ml Balance 410 ml 765 ml Intake Oral 360 ml IV Total 50 ml 825 ml Blood Product 540 ml Output Urine Total 600 ml Laboratory Tests 11/15/18 10:50: White Blood Count 8.2, Red Blood Count 3.12L, Hemoglobin 3.7*L, Hematocrit 15.3L , Mean Corpuscular Volume 49L, Mean Corpuscular Hemoglobin 12.0L, Mean Corpuscular Hemoglobin Concent 24.5L, Red Cell Distribution Width 15.0H, Platelet Count 428, Mean Platelet Volume 5.0L, Neutrophils (%) (Auto) , Lymphocytes (%) (Auto) , Monocytes (%) (Auto) , Eosinophils (%) (Auto) , Basophils (%) (Auto) , Differential Total Cells Counted 100, Neutrophils % ( Manual) 70, Lymphocytes % (Manual) 18L, Monocytes % (Manual) 11H, Eosinophils % (Manual) 1, Basophils % (Manual) 0, Band Neutrophils 0, Platelet Estimate Adequate, Platelet Morphology Normal, Hypochromasia 3+, Anisocytosis 1+, Microcytosis 3+, Sodium Level 134L, Potassium Level 3.9, Chloride Level 100, Carbon Dioxide Level 27, Anion Gap 7, Blood Urea Nitrogen 12, Creatinine 1.5H, Estimat Glomerular Filtration Rate 58.1, Glucose Level 98, Calcium Level 8.6, Total Bilirubin 0.4, Aspartate Amino Transf (AST/SGOT) 12L, Alanine Aminotransferase (ALT/SGPT) 12, Alkaline Phosphatase 57, Total Protein 8.2, Albumin 2.6L, Globulin 5.6 11/15/18 12:48: White Blood Count 8.7, Red Blood Count 2.99L, Hemoglobin 3.6*L, Hematocrit 14.6L , Mean Corpuscular Volume 49L, Mean Corpuscular Hemoglobin 11.9L, Mean Corpuscular Hemoglobin Concent 24.4L, Red Cell Distribution Width 14.6, Platelet Count 396, Mean Platelet Volume 5.5L, Neutrophils (%) (Auto) , Lymphocytes (%) (Auto) , Monocytes (%) (Auto) , Eosinophils (%) (Auto) , Basophils (%) (Auto) , Differential Total Cells Counted 100, Neutrophils % ( Manual) 71, Lymphocytes % (Manual) 18L, Monocytes % (Manual) 10, Eosinophils % ( Manual) 1, Basophils % (Manual) 0, Band Neutrophils 0, Platelet Estimate Adequate, Platelet Morphology Normal, Hypochromasia 3+, Anisocytosis 1+, Microcytosis 3+ 11/16/18 01:30: Stool Occult Blood [Pending] 11/16/18 05:58: White Blood Count 8.6, Red Blood Count 3.96L, Hemoglobin 7.3#L, Hematocrit 24.6# L, Mean Corpuscular Volume 62#L, Mean Corpuscular Hemoglobin 18.4L, Mean Corpuscular Hemoglobin Concent 29.7L, Red Cell Distribution Width 32.5H, Platelet Count 438, Mean Platelet Volume 5.8L, Neutrophils (%) (Auto) , Lymphocytes (%) (Auto) , Monocytes (%) (Auto) , Eosinophils (%) (Auto) , Basophils (%) (Auto) , Neutrophils % (Manual) [Pending], Lymphocytes % (Manual) [Pending], Platelet Estimate [Pending], Platelet Morphology [Pending], Sodium Level 138, Potassium Level 4.2, Chloride Level 104, Carbon Dioxide Level 24, Anion Gap 10, Blood Urea Nitrogen 11, Creatinine 1.5H, Estimat Glomerular Filtration Rate 58.1, Glucose Level 89, Calcium Level 8.8, Total Bilirubin 1.6H , Aspartate Amino Transf (AST/SGOT) 11L, Alanine Aminotransferase (ALT/SGPT) 8L , Alkaline Phosphatase 55, Total Protein 7.5, Albumin 2.2L, Globulin 5.3, Reticulocyte Count [Pending], Prothrombin Time 11.0, Prothromb Time International Ratio 1.0, Activated Partial Thromboplast Time 30, Iron Level [ Pending], Unsaturated Iron Binding [Pending], Ferritin 9, Direct Bilirubin 0.3, Albumin/Globulin Ratio 0.4L, Carcinoembryonic Antigen [Pending], Vitamin B12 Level [Pending], Folate [Pending], Thyroid Stimulating Hormone (TSH) 1.448, Free Thyroxine 1.11 Height (Feet): 5 Height (Inches): 8.00 Weight (Pounds): 120 General Appearance: no apparent distress EENT: normal ENT inspection Neck: normal alignment, supple Cardiovascular: normal rate, regular rhythm Respiratory/Chest: lungs clear, normal breath sounds Abdomen: non tender, soft Edema: no edema noted Arm (L), no edema noted Arm (R), no edema noted Leg (L), no edema noted Leg (R), no edema noted Pedal (L), no edema noted Pedal (R), no edema noted Generalized Urbano Holbrook MD Nov 16, 2018 07:12
--- NOTE | 2018-11-16 07:26 | NUR ---
HAND-OFF: Report given to ANN Coleman.
--- NOTE | 2018-11-16 07:35 | NUR ---
NURSE NOTES: Received patient from Ariella JUAREZ in bed resting. denies any pain. No acute distress noted. Noted patient has wound located at right neck and upper back covered with dressing. Bed is in lowest position, side rail up x2. Brakes engaged for safety. Call light within reach. education provided about using call light if needing help, patient verbalized understanding. Will continue with the plan of care.
[2018-11-16 07:48] LABS: % IRON SATURATION 12 % (15-50); IRON 35 ug/dL (50-175); TOTAL IRON BINDING CAPACITY 282 ug/dL (250-450)
[2018-11-16 08:00] VITALS: BP 108/56
--- NOTE | 2018-11-16 08:24 | General Progress Note ---
Assessment/Plan Problem List: (1) Anemia ICD Codes: D64.9 - Anemia, unspecified SNOMED: 731366208 (2) Wound cellulitis ICD Codes: L03.90 - Cellulitis, unspecified SNOMED: 007478051 (3) Wound infection ICD Codes: T14.8XXA - Other injury of unspecified body region, initial encounter; L08.9 - Local infection of the skin and subcutaneous tissue, unspecified SNOMED: 14908226 Assessment/Plan: fu stool ob EGD and colonoscopy if stool ob positive anemia most likely due to the large wound wound care will fu Subjective ROS Limited/Unobtainable: Yes Allergies: Coded Allergies: No Known Allergies (Unverified , 08/28/17) Objective Last 24 Hour Vital Signs Date Time Temp Pulse Resp B/P (MAP) Pulse Ox O2 Delivery O2 Flow Rate FiO2 11/16/18 04:00 72 11/16/18 04:00 98.0 73 20 114/68 (83) 97 11/16/18 00:00 78 11/15/18 21:00 Room Air 11/15/18 20:00 78 11/15/18 20:00 98.2 79 20 108/59 (75) 98 11/15/18 18:14 99.8 11/15/18 16:00 99.8 71 20 112/58 (76) 98 11/15/18 15:35 71 11/15/18 15:18 Room Air 11/15/18 14:48 97.7 71 16 122/61 (81) 99 11/15/18 14:08 97.2 72 13 115/70 100 Room Air 11/15/18 13:46 97.1 72 12 114/62 100 Room Air 11/15/18 12:01 98.0 76 11 118/59 100 Room Air 11/15/18 10:40 98.0 96 16 126/64 99 Room Air 11/15/18 10:37 97.9 115 18 132/61 (84) 98 Room Air Intake and Output 11/15/18 11/16/18 19:00 07:00 Intake Total 410 ml 1365 ml Output Total 600 ml Balance 410 ml 765 ml Intake Oral 360 ml IV Total 50 ml 825 ml Blood Product 540 ml Output Urine Total 600 ml Laboratory Tests 11/15/18 10:50: White Blood Count 8.2, Red Blood Count 3.12L, Hemoglobin 3.7*L, Hematocrit 15.3L , Mean Corpuscular Volume 49L, Mean Corpuscular Hemoglobin 12.0L, Mean Corpuscular Hemoglobin Concent 24.5L, Red Cell Distribution Width 15.0H, Platelet Count 428, Mean Platelet Volume 5.0L, Neutrophils (%) (Auto) , Lymphocytes (%) (Auto) , Monocytes (%) (Auto) , Eosinophils (%) (Auto) , Basophils (%) (Auto) , Differential Total Cells Counted 100, Neutrophils % ( Manual) 70, Lymphocytes % (Manual) 18L, Monocytes % (Manual) 11H, Eosinophils % (Manual) 1, Basophils % (Manual) 0, Band Neutrophils 0, Platelet Estimate Adequate, Platelet Morphology Normal, Hypochromasia 3+, Anisocytosis 1+, Microcytosis 3+, Sodium Level 134L, Potassium Level 3.9, Chloride Level 100, Carbon Dioxide Level 27, Anion Gap 7, Blood Urea Nitrogen 12, Creatinine 1.5H, Estimat Glomerular Filtration Rate 58.1, Glucose Level 98, Calcium Level 8.6, Total Bilirubin 0.4, Aspartate Amino Transf (AST/SGOT) 12L, Alanine Aminotransferase (ALT/SGPT) 12, Alkaline Phosphatase 57, Total Protein 8.2, Albumin 2.6L, Globulin 5.6 11/15/18 12:48: White Blood Count 8.7, Red Blood Count 2.99L, Hemoglobin 3.6*L, Hematocrit 14.6L , Mean Corpuscular Volume 49L, Mean Corpuscular Hemoglobin 11.9L, Mean Corpuscular Hemoglobin Concent 24.4L, Red Cell Distribution Width 14.6, Platelet Count 396, Mean Platelet Volume 5.5L, Neutrophils (%) (Auto) , Lymphocytes (%) (Auto) , Monocytes (%) (Auto) , Eosinophils (%) (Auto) , Basophils (%) (Auto) , Differential Total Cells Counted 100, Neutrophils % ( Manual) 71, Lymphocytes % (Manual) 18L, Monocytes % (Manual) 10, Eosinophils % ( Manual) 1, Basophils % (Manual) 0, Band Neutrophils 0, Platelet Estimate Adequate, Platelet Morphology Normal, Hypochromasia 3+, Anisocytosis 1+, Microcytosis 3+ 11/16/18 01:30: Stool Occult Blood [Pending] 11/16/18 05:58: White Blood Count 8.6, Red Blood Count 3.96L, Hemoglobin 7.3#L, Hematocrit 24.6# L, Mean Corpuscular Volume 62#L, Mean Corpuscular Hemoglobin 18.4L, Mean Corpuscular Hemoglobin Concent 29.7L, Red Cell Distribution Width 32.5H, Platelet Count 438, Mean Platelet Volume 5.8L, Neutrophils (%) (Auto) , Lymphocytes (%) (Auto) , Monocytes (%) (Auto) , Eosinophils (%) (Auto) , Basophils (%) (Auto) , Neutrophils % (Manual) [Pending], Lymphocytes % (Manual) [Pending], Platelet Estimate [Pending], Platelet Morphology [Pending], Sodium Level 138, Potassium Level 4.2, Chloride Level 104, Carbon Dioxide Level 24, Anion Gap 10, Blood Urea Nitrogen 11, Creatinine 1.5H, Estimat Glomerular Filtration Rate 58.1, Glucose Level 89, Calcium Level 8.8, Total Bilirubin 1.6H , Aspartate Amino Transf (AST/SGOT) 11L, Alanine Aminotransferase (ALT/SGPT) 8L , Alkaline Phosphatase 55, Total Protein 7.5, Albumin 2.2L, Globulin 5.3, Reticulocyte Count [Pending], Prothrombin Time 11.0, Prothromb Time International Ratio 1.0, Activated Partial Thromboplast Time 30, Iron Level 35L , Total Iron Binding Capacity 282, Percent Iron Saturation 12L, Unsaturated Iron Binding 247, Ferritin 9, Direct Bilirubin 0.3, Albumin/Globulin Ratio 0.4L , Carcinoembryonic Antigen [Pending], Vitamin B12 Level 503, Folate 18.2, Thyroid Stimulating Hormone (TSH) 1.448, Free Thyroxine 1.11 Height (Feet): 5 Height (Inches): 8.00 Weight (Pounds): 120 General Appearance: alert EENT: normal ENT inspection Neck: supple Cardiovascular: normal rate Respiratory/Chest: decreased breath sounds Abdomen: normal bowel sounds, non tender, soft Extremities: non-tender Jose Luis Phelps MD Nov 16, 2018 08:24
--- NOTE | 2018-11-16 11:40 | NUR ---
NURSE NOTES: Dressing change done by the wound care nurse.
[2018-11-16 12:00] VITALS: BP 110/54
--- NOTE | 2018-11-16 12:52 | NUR ---
CASE MANAGEMENT:REVIEW 58 YR OLD MALE PRESENTED TO ER CC: UNABLE TO STRAIGHTEN NECK D/T WOUND SI: WOUND INFECTION.ANEMIA 97.8 115 18 132/61 98% ON RA H/H-3.6/14.6 IS: IV ANCEF XRAY C-SPINE : TO TELEMETRY Addendum: 11/16/18 at 1303 by JENNY METZGER LVN LVN PLAN: TRANSFUSE 3 UNITS PRBC
--- NOTE | 2018-11-16 13:53 | Surgery Progress Note ---
Surgery Progress Note Subjective Additional Comments no acute events. responded to transfusions well. labs noted. exam unchanged. no complaints wound dressings saturated today. no odor Objective Last 24 Hour Vital Signs Date Time Temp Pulse Resp B/P (MAP) Pulse Ox O2 Delivery O2 Flow Rate FiO2 11/16/18 12:00 97.6 72 18 110/54 (72) 99 11/16/18 12:00 71 11/16/18 09:00 Room Air 11/16/18 08:00 78 11/16/18 08:00 98.2 63 18 108/56 (73) 98 11/16/18 04:00 72 11/16/18 04:00 98.0 73 20 114/68 (83) 97 11/16/18 00:00 78 11/15/18 21:00 Room Air 11/15/18 20:00 78 11/15/18 20:00 98.2 79 20 108/59 (75) 98 11/15/18 18:14 99.8 11/15/18 16:00 99.8 71 20 112/58 (76) 98 11/15/18 15:35 71 11/15/18 15:18 Room Air 11/15/18 14:48 97.7 71 16 122/61 (81) 99 11/15/18 14:08 97.2 72 13 115/70 100 Room Air I&O Intake and Output 11/15/18 11/16/18 18:59 06:59 Intake Total 410 ml 1365 ml Output Total 600 ml Balance 410 ml 765 ml Intake Oral 360 ml IV Total 50 ml 825 ml Blood Product 540 ml Output Urine Total 600 ml Dressing: saturated Wound: other Cardiovascular: RSR Respiratory: clear Abdomen: soft, present bowel sounds, non-distended Extremities: no edema, no tenderness, no cyanosis Laboratory Tests Test 11/16/18 01:30 11/16/18 05:58 Stool Occult Blood Negative (NEGATIVE) White Blood Count 8.6 K/UL (4.8-10.8) Red Blood Count 3.96 M/UL (4.70-6.10) L Hemoglobin 7.3 G/DL (14.2-18.0) #L Hematocrit 24.6 % (42.0-52.0) #L Mean Corpuscular Volume 62 FL (80-99) #L Mean Corpuscular Hemoglobin 18.4 PG (27.0-31.0) L Mean Corpuscular Hemoglobin Concent 29.7 G/DL (32.0-36.0) L Red Cell Distribution Width 32.5 % (11.6-14.8) H Platelet Count 438 K/UL (150-450) Mean Platelet Volume 5.8 FL (6.5-10.1) L Neutrophils (%) (Auto) % (45.0-75.0) Lymphocytes (%) (Auto) % (20.0-45.0) Monocytes (%) (Auto) % (1.0-10.0) Eosinophils (%) (Auto) % (0.0-3.0) Basophils (%) (Auto) % (0.0-2.0) Differential Total Cells Counted 100 Neutrophils % (Manual) 81 % (45-75) H Lymphocytes % (Manual) 13 % (20-45) L Monocytes % (Manual) 3 % (1-10) Eosinophils % (Manual) 3 % (0-3) Basophils % (Manual) 0 % (0-2) Band Neutrophils 0 % (0-8) Platelet Estimate Adequate Platelet Morphology Normal Polychromasia 1+ Hypochromasia 3+ Anisocytosis 4+ Microcytosis 3+ Reticulocyte Count 2.2 % (0.5-2.0) H Prothrombin Time 11.0 SEC (9.30-11.50) Prothromb Time International Ratio 1.0 (0.9-1.1) Activated Partial Thromboplast Time 30 SEC (23-33) Sodium Level 138 MMOL/L (136-145) Potassium Level 4.2 MMOL/L (3.5-5.1) Chloride Level 104 MMOL/L (98-107) Carbon Dioxide Level 24 MMOL/L (21-32) Anion Gap 10 mmol/L (5-15) Blood Urea Nitrogen 11 mg/dL (7-18) Creatinine 1.5 MG/DL (0.55-1.30) H Estimat Glomerular Filtration Rate 58.1 mL/min (>60) Glucose Level 89 MG/DL (74-106) Calcium Level 8.8 MG/DL (8.5-10.1) Iron Level 35 ug/dL (50-175) L Total Iron Binding Capacity 282 ug/dL (250-450) Percent Iron Saturation 12 % (15-50) L Unsaturated Iron Binding 247 ug/dL (112-346) Ferritin 9 NG/ML (8-388) Total Bilirubin 1.6 MG/DL (0.2-1.0) H Direct Bilirubin 0.3 MG/DL (0.0-0.3) Aspartate Amino Transf (AST/SGOT) 11 U/L (15-37) L Alanine Aminotransferase (ALT/SGPT) 8 U/L (12-78) L Alkaline Phosphatase 55 U/L (46-116) Total Protein 7.5 G/DL (6.4-8.2) Albumin 2.2 G/DL (3.4-5.0) L Globulin 5.3 g/dL Albumin/Globulin Ratio 0.4 (1.0-2.7) L Carcinoembryonic Antigen Pending Vitamin B12 Level 503 PG/ML (193-986) Folate 18.2 NG/ML (8.6-58.9) Thyroid Stimulating Hormone (TSH) 1.448 uiU/mL (0.358-3.740) Free Thyroxine 1.11 NG/DL (0.76-1.46) Plan Problems: (1) Failure to thrive (2) Wound cellulitis Assessment & Plan: 58M with posterior neck wound that is chronic non healing and with chronic cellulitis. etiology of wound not know and patient poor historian in regards to wound large area wound open. dressings saturated very unfortunate case with large wound that has gone without care for so long for now recommend washing wound with saline daily, zinc oxide to boarders then alginate, hydrogel, xeroform to wound will monitor wound while in hospital will need long tern outpatient wound care IV Abx (3) Anemia Assessment & Plan: transfuse prn trend h/h appreciate GI input (4) Wound infection (5) ESRD (end stage renal disease) on dialysis Jarod Lala Nov 16, 2018 13:52
[2018-11-16] MEDS ORDERED: Vancomycin 1.25gm Premix IVPB ONE (14:00)
--- NOTE | 2018-11-16 14:28 | NUR ---
NURSE NOTES:WOUND CARE NOTES:Pt presented on admission with an atypical wound posterior R neck. Pt unaware of etiology of wound but stated wound was initially very small. Pt also not specific about duration he has had wound. Drsg noted to be saturated with serous non-odorous exudate when removed. Base of wound george with an area thick yellow fibrinous slough noted clockwise between 9-12o'clock,approx 20%. Smaller area of less than 5% in close proximity that is necrotic. Borders are irregular ,indurated with additional openings (L)15cm x (W08.5cm x(D)2.5cm.Hyperpigmentation periwound. An area that is hyperpigmented tracking into hortensia neck.Pt verbalized previously having wound which had healed prior to developing current wound. Pt verbalized wound is painful and having difficulty moving neck.Pt educated on good hand hygiene and instructed to avoid scratching at skin around wound. Tx.Plan: Cleanse wound with Saline.Apply Hydrogel then Xeroform. Apply Calcium Alginate. Apply Zinc Oxide periwound. Cover with Optifoam drsgs. Change Daily and PRN.
--- NOTE | 2018-11-16 15:16 | NUR ---
*-* INSURANCE *-* ALL CLINICALS AND REVIEWS HAVE BEEN FAXED TO: IPA: ANA CARRANZA P:[phone] F:[phone] (FAX CLINICALS)
--- NOTE | 2018-11-16 15:19 | NUR ---
RD ASSESSMENT & RECOMMENDATIONS SEE CARE ACTIVITY FOR COMPLETE ASSESSMENT DAILY ESTIMATED NEEDS: Needs based on Wound healing, wt loss, underweight/ 54kg 30-40 kcals/kg 6732-7065 total kcals 1.5-2.0 g protein/kg 81-108 g total protein 25-30 mL/kg 1285-7628 total fluid mLs NUTRITION DIAGNOSIS: Increased kcal/prot needs R/T wound healing, underweight status, wt loss as evidenced by pt admitted w/ large, open neck wound, w/ mild-moderate generalized wasting, @ 78% IBW w/ BMI of 18.3, pt reports significant wt loss of 30lbs/20% in "a couple of months" CURRENT DIET:REGULAR PO DIET RECOMMENDATIONS: REGULAR, DOUBLE PROTEIN PORTIONS ADDITIONAL RECOMMENDATIONS: * Standing wt for accurate CBW, weekly wts given h/o wt loss and low BMI * Wound healing: Add MVI w/ min 1 tab QD, Vit C 500mg BID : ZnSO4 220mg QD X 10 days : Beltran 1pkt BID * Add Ensure Enlive 1 bottle @ 10am (350kcal/20g prot per bottle) High prot snack @ 2pm * Pt educated on the importance of adequate kcal/prot intake for wound healing
[2018-11-16] MEDS: Zinc Oxide Oint 2oz TOPIC SCH ×2 (15:30→17:36)
--- NOTE | 2018-11-16 15:30 | NUR ---
NURSE NOTES: Zinc oxide ointment already applied with dressing change done by the wound care nurse.
[2018-11-16 16:00] VITALS: BP 104/54
--- NOTE | 2018-11-16 17:15 | History and Physical Report ---
DATE OF ADMISSION: 11/15/2018 HISTORY OF PRESENT ILLNESS: This is a 58-year-old male, who is admitted to the hospital with a hemoglobin of 3.9. The patient was stool occult blood negative. He is admitted for transfusion and workup. He is also found to have a large neck wound that needed intervention. The patient denies any previous surgeries. PAST SURGICAL HISTORY: None. FAMILY HISTORY: None. He lives at home with a caregiver. REVIEW OF SYSTEMS: Denies any headaches, hematemesis, melena, or hematochezia. PHYSICAL EXAMINATION: GENERAL: Reveals a 58-year-old male. HEENT: Unremarkable. NECK: He has a large neck wound as discussed above. LUNGS: Clear breath sounds bilaterally. ABDOMEN: Soft. Stool occult blood negative per ER physician. EXTREMITIES: There is no edema. NEUROLOGIC: Nonfocal. LABORATORY DATA: Lab testing notable for hemoglobin initially of 3.7, now it is 7.3 after 2 units PRBC. Platelet count is normal. Chemistries are unremarkable except for creatinine 1.5. Coags are negative. Stool occult blood is pending this morning. IMAGING STUDIES: Cervical spine x-rays was reviewed, which shows a large of ulceration and evidence of cellulitis in the posterior part of the neck. IMPRESSION: 1. Large neck wound. 2. Anemia of chronic disease. DISCUSSION: Admitted to the hospital. We will start broad-spectrum antibiotics. Consult Nephrology for renal insufficiency. We will also consult general surgery for consideration of wound care and possible debridement. We will transfuse. We will consult GI for endoscopy if needed. We will follow carefully. Luis E Greene M.D. DR: MARISA JOB#: [id number] CC:
[2018-11-16] MEDS: Ascorbic Acid 500mg tab ORAL SCH (17:35)
--- NOTE | 2018-11-16 17:37 | NUR ---
NURSE NOTES: Zinc oxide ointment already applied with dressing change done by the wound care nurse. Non-administer the 1800 med
[2018-11-16] MEDS ORDERED: Levofloxacin 250mg/D5W 50ml IVPB SCH (18:00)
--- NOTE | 2018-11-16 19:39 | NUR ---
HAND-OFF: Report given to Jeanette JUAREZ.Patient is in stable condition.
--- NOTE | 2018-11-16 19:45 | NUR ---
NURSE NOTES: patient received. patient in no acute distress at this time. patient complains of no pain at thsi time. patient awake alert and oriented x4. patient ambulatory and steady. skin intact besides for neck wound. wound dry and intact. IV intact patent and asymptomatic. patient bed in lowest position and locked. call light within reach. will continue to monitor.
[2018-11-17] VITALS: BP 113/64
[2018-11-17 04:00] VITALS: BP 144/71
--- NOTE | 2018-11-17 07:09 | Nephrology Progress Note ---
Assessment/Plan Assessment/Plan: A/P 1) CKD 3B- Cr 1.5. AM labs pending - could be due to severe volume depletion/anemia - Cr stable at 1.5. -avoid nephrotoxins 2) Severe Anemia- s/p 3 Units PRBS, GI to evaluate EGD/Colonoscopy 3) Dehydration- resolved. DC IVFs 4) Neck Back Infection wound- per Gen Surgery Subjective Date patient seen: Nov 17, 2018 Time patient seen: 07:07 ROS Limited/Unobtainable: No Allergies: Coded Allergies: No Known Allergies (Unverified , 08/28/17) Subjective Patient without complaints. Resting well Objective Last 24 Hour Vital Signs Date Time Temp Pulse Resp B/P (MAP) Pulse Ox O2 Delivery O2 Flow Rate FiO2 11/17/18 04:00 62 11/17/18 04:00 97.4 70 18 144/71 (95) 100 11/17/18 00:00 98.5 68 18 113/64 (80) 98 11/16/18 21:00 Room Air 11/16/18 20:00 70 11/16/18 16:00 65 11/16/18 16:00 98.3 67 18 104/54 (71) 97 11/16/18 12:00 97.6 72 18 110/54 (72) 99 11/16/18 12:00 71 11/16/18 09:00 Room Air 11/16/18 08:00 78 11/16/18 08:00 98.2 63 18 108/56 (73) 98 Intake and Output 11/16/18 11/17/18 19:00 07:00 Intake Total 480 ml 120 ml Output Total 1200 ml Balance -720 ml 120 ml Intake Oral 480 ml 120 ml Output Urine Total 1200 ml # Bowel Movements 1 2 Height (Feet): 5 Height (Inches): 8.00 Weight (Pounds): 148 General Appearance: no apparent distress EENT: normal ENT inspection Neck: normal alignment, supple Cardiovascular: normal rate, regular rhythm Respiratory/Chest: lungs clear, normal breath sounds Abdomen: non tender, soft Edema: no edema noted Arm (L), no edema noted Arm (R), no edema noted Leg (L), no edema noted Leg (R), no edema noted Pedal (L), no edema noted Pedal (R), no edema noted Generalized Urbano Holbrook MD Nov 17, 2018 07:09
--- NOTE | 2018-11-17 07:33 | NUR ---
NURSE NOTES: Received patient from Jeanette JUAREZ in bed resting. denies any pain. No acute distress noted. Patient's wound on right neck and upper back is clean and intact. Bed is in lowest position, side rail up x2. Brakes engaged for safety. Call light within reach. education provided about using call light if needing help, patient verbalized understanding. Will continue with the plan of care.
--- NOTE | 2018-11-17 07:45 | NUR ---
HAND-OFF: Report given to ANN Friedman
[2018-11-17 08:00] VITALS: BP 109/67
[2018-11-17 08:36] LABS: HEMATOCRIT 24.4 % (42.0-52.0); HEMOGLOBIN 7.1 G/DL (14.2-18.0); MEAN CORPUSCULAR VOLUME 63 FL (80-99); PLATELET COUNT 423 K/UL (150-450); RED BLOOD COUNT 3.88 M/UL (4.70-6.10); RED CELL DISTRIBUTION WIDTH 32.7 % (11.6-14.8); WHITE BLOOD COUNT 9.4 K/UL (4.8-10.8)
[2018-11-17 08:48] LABS: ANION GAP 6 mmol/L (5-15); BLOOD UREA NITROGEN 10 mg/dL (7-18); CALCIUM 8.6 MG/DL (8.5-10.1); CARBON DIOXIDE 26 MMOL/L (21-32); CHLORIDE 105 MMOL/L (98-107); CREATININE 1.4 MG/DL (0.55-1.30); POTASSIUM 4.2 MMOL/L (3.5-5.1); SODIUM 137 MMOL/L (136-145)
[2018-11-17] MEDS: Zinc Oxide Oint 2oz TOPIC SCH ×3 (09:00→17:18)
[2018-11-17] MEDS: Zinc Sulfate 220mg cap ORAL SCH (09:28)
[2018-11-17] MEDS: Ascorbic Acid 500mg tab ORAL SCH ×2 (09:28→17:17)
[2018-11-17] MEDS: Morphine Sulfate 2mg/ml Inj(IV/IM USE ONLY) IVP PRN (09:31)
--- NOTE | 2018-11-17 09:43 | Pulmonology Progress Note ---
Assessment/Plan Assessment/Plan IMPRESSION: 1. Large neck wound. 2. Anemia of chronic disease. DISCUSSION: Continue start broad-spectrum antibiotics. S/p transfusion. I will follow carefully. Will need placement Subjective Interval Events: Seen by GI and surgery Constitutional: Reports: no symptoms HEENT: Repors: no symptoms Respiratory: Reports: no symptoms Cardiovascular: Reports: no symptoms Gastrointestinal/Abdominal: Reports: no symptoms Genitourinary: Reports: no symptoms Allergies: Coded Allergies: No Known Allergies (Unverified , 08/28/17) Objective Last 24 Hour Vital Signs Date Time Temp Pulse Resp B/P (MAP) Pulse Ox O2 Delivery O2 Flow Rate FiO2 11/17/18 04:00 62 11/17/18 04:00 97.4 70 18 144/71 (95) 100 11/17/18 00:00 98.5 68 18 113/64 (80) 98 11/16/18 21:00 Room Air 11/16/18 20:00 70 11/16/18 16:00 65 11/16/18 16:00 98.3 67 18 104/54 (71) 97 11/16/18 12:00 97.6 72 18 110/54 (72) 99 11/16/18 12:00 71 Intake and Output 11/16/18 11/17/18 19:00 07:00 Intake Total 480 ml 120 ml Output Total 1200 ml Balance -720 ml 120 ml Intake Oral 480 ml 120 ml Output Urine Total 1200 ml # Bowel Movements 1 2 General Appearance: no acute distress HEENT: normocephalic Respiratory/Chest: chest wall non-tender, lungs clear Cardiovascular: normal peripheral pulses, normal rate Abdomen: normal bowel sounds Microbiology Date/Time Source Procedure Growth Status 11/15/18 16:49 Wound Gram Stain - Final Resulted 11/15/18 16:49 Wound Culture - Preliminary Gram Negative Bacillus 1 Staphylococcus Aureus Resulted Laboratory Tests 11/17/18 06:57: White Blood Count 9.4, Red Blood Count 3.88L, Hemoglobin 7.1L, Hematocrit 24.4L , Mean Corpuscular Volume 63L, Mean Corpuscular Hemoglobin 18.2L, Mean Corpuscular Hemoglobin Concent 28.9L, Red Cell Distribution Width 32.7H, Platelet Count 423, Mean Platelet Volume 5.6L, Neutrophils (%) (Auto) , Lymphocytes (%) (Auto) , Monocytes (%) (Auto) , Eosinophils (%) (Auto) , Basophils (%) (Auto) , Neutrophils % (Manual) [Pending], Lymphocytes % (Manual) [Pending], Platelet Estimate [Pending], Platelet Morphology [Pending], Sodium Level 137, Potassium Level 4.2, Chloride Level 105, Carbon Dioxide Level 26, Anion Gap 6, Blood Urea Nitrogen 10, Creatinine 1.4H, Estimat Glomerular Filtration Rate > 60, Glucose Level 73L, Calcium Level 8.6, Random Vancomycin Level 11.3 Current Medications Medications (Trade) Dose Ordered Sig/Charla Route PRN Reason Start Time Stop Time Status Last Admin Dose Admin Ascorbic Acid (Vitamin C) 500 mg TWICE A DAY ORAL 11/16/18 18:00 12/16/18 17:59 11/17/18 09:28 Dextrose (Dextrose 50%) 25 ml Q30M PRN IV Hypoglycemia 11/15/18 17:30 12/15/18 17:29 Dextrose (Dextrose 50%) 50 ml Q30M PRN IV Hypoglycemia 11/15/18 17:30 12/15/18 17:29 Famotidine (Pepcid) 40 mg DAILY ORAL 11/16/18 09:00 12/16/18 08:59 11/17/18 09:28 Levofloxacin 50 ml @ 50 mls/hr Q24H IVPB 11/16/18 18:00 11/23/18 17:59 11/16/18 17:36 Morphine Sulfate (Morphine Sulfate) 1 mg Q4H PRN IVP For Pain 11/15/18 17:30 11/22/18 17:29 11/17/18 09:31 Multivitamins (Multivitamins) 1 tab DAILY ORAL 11/17/18 09:00 12/17/18 08:59 11/17/18 09:28 Ondansetron HCl (Zofran) 4 mg Q6H PRN IVP Nausea & Vomiting 11/15/18 17:30 12/15/18 17:29 Vancomycin HCl (Vanco rx to dose) 1 ea DAILY PRN MISC Per rx protocol 11/15/18 17:00 12/15/18 16:59 Vancomycin HCl 1 gm/Dextrose 275 ml @ 183.708 mls/hr ONCE IVPB 11/17/18 11:00 11/17/18 13:00 Zinc Oxide (Zinc Oxide) 1 applic THREE TIMES A DAY TOPIC 11/16/18 15:30 12/16/18 15:29 11/17/18 09:00 Zinc Sulfate (Zinc Sulfate) 220 mg DAILY ORAL 11/17/18 09:00 12/17/18 08:59 11/17/18 09:28 Luis E Greene MD Nov 17, 2018 09:43
--- NOTE | 2018-11-17 09:48 | GI Progress Note ---
Assessment/Plan Problems: (1) ESRD (end stage renal disease) on dialysis ICD Codes: N18.6 - End stage renal disease; Z99.2 - Dependence on renal dialysis SNOMED: 007167195 (2) Wound infection ICD Codes: T14.8XXA - Other injury of unspecified body region, initial encounter; L08.9 - Local infection of the skin and subcutaneous tissue, unspecified SNOMED: 39419970 (3) Anemia ICD Codes: D64.9 - Anemia, unspecified SNOMED: 333662425 (4) Wound cellulitis ICD Codes: L03.90 - Cellulitis, unspecified SNOMED: 822896078 (5) Failure to thrive SNOMED: 06708665 Status: stable Status Narrative Discussed with Dr. Phelps Assessment/Plan OB stool negative Will defer EGD and colonoscopy at this time, can be done as outpatient anemia most likely due to the large wound wound care PRN transfusions PPI Follow labs The patient was seen and examined at bedside and all new and available data was reviewed in the patients chart. I agree with the above findings, impression and plan. (Patient seen earlier today. Signature stamp does not reflect patient encounter time.). - Jose Luis Phelps MD Subjective Gastrointestinal/Abdominal: Reports: no symptoms Objective Last 24 Hour Vital Signs Date Time Temp Pulse Resp B/P (MAP) Pulse Ox O2 Delivery O2 Flow Rate FiO2 11/17/18 04:00 62 11/17/18 04:00 97.4 70 18 144/71 (95) 100 11/17/18 00:00 98.5 68 18 113/64 (80) 98 11/16/18 21:00 Room Air 11/16/18 20:00 70 11/16/18 16:00 65 11/16/18 16:00 98.3 67 18 104/54 (71) 97 11/16/18 12:00 97.6 72 18 110/54 (72) 99 11/16/18 12:00 71 Intake and Output 11/16/18 11/17/18 19:00 07:00 Intake Total 480 ml 120 ml Output Total 1200 ml Balance -720 ml 120 ml Intake Oral 480 ml 120 ml Output Urine Total 1200 ml # Bowel Movements 1 2 Laboratory Tests Test 11/17/18 06:57 White Blood Count 9.4 K/UL (4.8-10.8) Red Blood Count 3.88 M/UL (4.70-6.10) L Hemoglobin 7.1 G/DL (14.2-18.0) L Hematocrit 24.4 % (42.0-52.0) L Mean Corpuscular Volume 63 FL (80-99) L Mean Corpuscular Hemoglobin 18.2 PG (27.0-31.0) L Mean Corpuscular Hemoglobin Concent 28.9 G/DL (32.0-36.0) L Red Cell Distribution Width 32.7 % (11.6-14.8) H Platelet Count 423 K/UL (150-450) Mean Platelet Volume 5.6 FL (6.5-10.1) L Neutrophils (%) (Auto) % (45.0-75.0) Lymphocytes (%) (Auto) % (20.0-45.0) Monocytes (%) (Auto) % (1.0-10.0) Eosinophils (%) (Auto) % (0.0-3.0) Basophils (%) (Auto) % (0.0-2.0) Neutrophils % (Manual) Pending Lymphocytes % (Manual) Pending Platelet Estimate Pending Platelet Morphology Pending Sodium Level 137 MMOL/L (136-145) Potassium Level 4.2 MMOL/L (3.5-5.1) Chloride Level 105 MMOL/L (98-107) Carbon Dioxide Level 26 MMOL/L (21-32) Anion Gap 6 mmol/L (5-15) Blood Urea Nitrogen 10 mg/dL (7-18) Creatinine 1.4 MG/DL (0.55-1.30) H Estimat Glomerular Filtration Rate > 60 mL/min (>60) Glucose Level 73 MG/DL (74-106) L Calcium Level 8.6 MG/DL (8.5-10.1) Random Vancomycin Level 11.3 ug/mL Height (Feet): 5 Height (Inches): 8.00 Weight (Pounds): 148 General Appearance: WD/WN, no apparent distress, alert, thin Cardiovascular: normal rate Respiratory/Chest: normal breath sounds, no respiratory distress Abdominal Exam: normal bowel sounds, non tender, soft Extremities: normal range of motion, non-tender Sanket Gamino P[employer] FURNACE OPERATOR Nov 17, 2018 09:48
[2018-11-17] MEDS ORDERED: Vancomycin 1gm/D5W 275ml IVPB SCH ×2 (11:00)
--- NOTE | 2018-11-17 11:19 | CDS Physician Query ---
Clarification is required for compliance, coding accuracy, and to reflect severity of illness for this patient Dear Dr. Luis E Greene Date: 11/17/2018 Corporate Quality Assurance Manager/CDS Name: Marj Reyes Clinical Documentation states: 58-year-old male, who is admitted to the hospital with a hemoglobin of 3.9. The patient was stool occult blood negative. He is admitted for transfusion and workup. He is also found to have a large neck wound that needed intervention. 11/17 Gastroenterology note: Failure to thrive RD note: Increased kcal/prot needs R/T wound healing, underweight status, wt loss as evidenced by pt admitted w/ large, open neck wound, w/ mild-moderate generalized wasting, @ 78% IBW w/ BMI of 18.3, pt reports significant wt loss of 30lbs/20% in "a couple of months" Please select the most appropriate option: [] Protein/Calorie Malnutrition [] Mild [] Moderate [] Severe [] Hypoalbuminemia [] Emancipated w/ Malnutrition [] Kwashiorkor (rare in [facility]) [] Marasmus [] Other [] Unable to determine [] Not Applicable Present on Admission: [] Yes [] No [] Clinically Undetermined Physician signature Date Please also document in your Progress Notes and/or Discharge Summary and indicate if the condition was present on admission. MTDD
[2018-11-17 12:00] VITALS: BP 110/66
--- NOTE | 2018-11-17 13:45 | NUR ---
*-* INSURANCE *-* ALL CLINICALS HAVE BEEN FAXED TO: IPA: ANA CARRANZA P:[phone] F:[phone] (FAX CLINICALS)
--- NOTE | 2018-11-17 15:09 | Surgery Progress Note ---
Surgery Progress Note Subjective Symptoms: improved, pain absent, tolerating diet, passing flatus, BM Objective Last 24 Hour Vital Signs Date Time Temp Pulse Resp B/P (MAP) Pulse Ox O2 Delivery O2 Flow Rate FiO2 11/17/18 09:00 Room Air 11/17/18 08:00 75 11/17/18 08:00 98.4 63 18 109/67 (81) 96 11/17/18 04:00 62 11/17/18 04:00 97.4 70 18 144/71 (95) 100 11/17/18 00:00 98.5 68 18 113/64 (80) 98 11/16/18 21:00 Room Air 11/16/18 20:00 70 11/16/18 16:00 65 11/16/18 16:00 98.3 67 18 104/54 (71) 97 I&O Intake and Output 11/16/18 11/17/18 18:59 06:59 Intake Total 480 ml 120 ml Output Total 1200 ml Balance -720 ml 120 ml Intake Oral 480 ml 120 ml Output Urine Total 1200 ml # Bowel Movements 1 2 Dressing: saturated Wound: other Drains: other Cardiovascular: RSR Respiratory: clear Abdomen: soft, flat, non-tender, present bowel sounds Extremities: no edema, no tenderness, no cyanosis Laboratory Tests Test 11/17/18 06:57 White Blood Count 9.4 K/UL (4.8-10.8) Red Blood Count 3.88 M/UL (4.70-6.10) L Hemoglobin 7.1 G/DL (14.2-18.0) L Hematocrit 24.4 % (42.0-52.0) L Mean Corpuscular Volume 63 FL (80-99) L Mean Corpuscular Hemoglobin 18.2 PG (27.0-31.0) L Mean Corpuscular Hemoglobin Concent 28.9 G/DL (32.0-36.0) L Red Cell Distribution Width 32.7 % (11.6-14.8) H Platelet Count 423 K/UL (150-450) Mean Platelet Volume 5.6 FL (6.5-10.1) L Neutrophils (%) (Auto) % (45.0-75.0) Lymphocytes (%) (Auto) % (20.0-45.0) Monocytes (%) (Auto) % (1.0-10.0) Eosinophils (%) (Auto) % (0.0-3.0) Basophils (%) (Auto) % (0.0-2.0) Differential Total Cells Counted 100 Neutrophils % (Manual) 76 % (45-75) H Lymphocytes % (Manual) 18 % (20-45) L Monocytes % (Manual) 5 % (1-10) Eosinophils % (Manual) 1 % (0-3) Basophils % (Manual) 0 % (0-2) Band Neutrophils 0 % (0-8) Platelet Estimate Adequate Platelet Morphology Normal Polychromasia 2+ Hypochromasia 3+ Anisocytosis 3+ Microcytosis 3+ Sodium Level 137 MMOL/L (136-145) Potassium Level 4.2 MMOL/L (3.5-5.1) Chloride Level 105 MMOL/L (98-107) Carbon Dioxide Level 26 MMOL/L (21-32) Anion Gap 6 mmol/L (5-15) Blood Urea Nitrogen 10 mg/dL (7-18) Creatinine 1.4 MG/DL (0.55-1.30) H Estimat Glomerular Filtration Rate > 60 mL/min (>60) Glucose Level 73 MG/DL (74-106) L Calcium Level 8.6 MG/DL (8.5-10.1) Random Vancomycin Level 11.3 ug/mL Plan Problems: (1) Failure to thrive (2) Wound cellulitis Assessment & Plan: 58M with posterior neck wound that is chronic non healing and with chronic cellulitis. etiology of wound not know and patient poor historian in regards to wound large area wound open. dressings saturated Pt presented on admission with an atypical wound posterior R neck. Pt unaware of etiology of wound but stated wound was initially very small. Pt also not specific about duration he has had wound. Drsg noted to be saturated with serous non-odorous exudate when removed. Base of wound george with an area thick yellow fibrinous slough noted clockwise between 9-12o'clock,approx 20%. Smaller area of less than 5% in close proximity that is necrotic. Borders are irregular ,indurated with additional openings (L)15cm x (W08.5cm x(D) 2.5cm.Hyperpigmentation periwound. An area that is hyperpigmented tracking into hortensia neck.Pt verbalized previously having wound which had healed prior to developing current wound. Pt verbalized wound is painful and having difficulty moving neck.Pt educated on good hand hygiene and instructed to avoid scratching at skin around wound. very unfortunate case with large wound that has gone without care for so long Tx.Plan: Cleanse wound with Saline.Apply Hydrogel then Xeroform. Apply Calcium Alginate. Apply Zinc Oxide periwound. Cover with Optifoam drsgs. Change Daily and PRN. will monitor wound while in hospital will need long tern outpatient wound care IV Abx (3) Anemia Assessment & Plan: transfuse prn trend h/h appreciate GI input (4) Wound infection (5) ESRD (end stage renal disease) on dialysis Jarod Lala Nov 17, 2018 15:09
--- NOTE | 2018-11-17 15:38 | NUR ---
CASE MANAGEMENT:REVIEW 11/17/18 SI: MASSIVE NECK WOUND INFECTION. ANEMIA 98.4 75 18 109/67 96%ON RA H/H-7.1/24.4 IS: IV LEVAQUIN Q24 PEPCID PO QD IV MORPHINE Q4HRS PRN : TELEMETRY STATUS PLAN: WOUND CARE DAILY AND PRN
[2018-11-17 16:00] VITALS: BP 128/69
--- NOTE | 2018-11-17 19:33 | NUR ---
HAND-OFF: Report given to Bobby JUAREZ.Endorsed plan of care.
--- NOTE | 2018-11-17 19:34 | NUR ---
NURSE NOTES: Received pt from ANN Craft. Pt is awake and resting in bed. IV site intact. Pt is tolerating room air with HOB elevated. Bed locked, lowered, and call light within reach. Will continue with plan of care.
--- NOTE | 2018-11-18 06:42 | NUR ---
NURSE NOTES: Received callback from Dr. Yates that patient is not safe for discharge and to let Dr. Islas aware that patient wants to leave AMA. Noted and carried out. Addendum: 11/18/18 at 0818 by JUAN DE RN RN Wrong patient.
--- NOTE | 2018-11-18 06:53 | Nephrology Progress Note ---
Assessment/Plan Status: stable Assessment/Plan: A/P 1) CKD 3B- - Cr stable. At 1.4 with am labs pending -avoid nephrotoxins 2) Severe Anemia- s/p 3 Units PRBS, per GI mgmt 3) Dehydration- resolved. 4) Neck Back Infection wound- per Gen Surgery Subjective Date patient seen: Nov 18, 2018 Time patient seen: 06:51 ROS Limited/Unobtainable: No Allergies: Coded Allergies: No Known Allergies (Unverified , 08/28/17) Subjective Patient feeling better and sleeping comfortably Objective Last 24 Hour Vital Signs Date Time Temp Pulse Resp B/P (MAP) Pulse Ox O2 Delivery O2 Flow Rate FiO2 11/18/18 04:00 58 11/18/18 00:00 74 11/17/18 21:00 Room Air 11/17/18 20:00 82 11/17/18 16:00 98.8 83 18 128/69 (88) 98 11/17/18 16:00 79 11/17/18 12:00 98.5 66 18 110/66 (81) 98 11/17/18 12:00 71 11/17/18 09:00 Room Air 11/17/18 08:00 75 11/17/18 08:00 98.4 63 18 109/67 (81) 96 Intake and Output 11/17/18 11/18/18 19:00 07:00 Intake Total 480 ml 200 ml Output Total 1600 ml 750 ml Balance -1120 ml -550 ml Intake Oral 480 ml 200 ml Output Urine Total 1600 ml 750 ml Laboratory Tests 11/17/18 06:57: White Blood Count 9.4, Red Blood Count 3.88L, Hemoglobin 7.1L, Hematocrit 24.4L , Mean Corpuscular Volume 63L, Mean Corpuscular Hemoglobin 18.2L, Mean Corpuscular Hemoglobin Concent 28.9L, Red Cell Distribution Width 32.7H, Platelet Count 423, Mean Platelet Volume 5.6L, Neutrophils (%) (Auto) , Lymphocytes (%) (Auto) , Monocytes (%) (Auto) , Eosinophils (%) (Auto) , Basophils (%) (Auto) , Differential Total Cells Counted 100, Neutrophils % ( Manual) 76H, Lymphocytes % (Manual) 18L, Monocytes % (Manual) 5, Eosinophils % ( Manual) 1, Basophils % (Manual) 0, Band Neutrophils 0, Platelet Estimate Adequate, Platelet Morphology Normal, Polychromasia 2+, Hypochromasia 3+, Anisocytosis 3+, Microcytosis 3+, Sodium Level 137, Potassium Level 4.2, Chloride Level 105, Carbon Dioxide Level 26, Anion Gap 6, Blood Urea Nitrogen 10 , Creatinine 1.4H, Estimat Glomerular Filtration Rate > 60, Glucose Level 73L, Calcium Level 8.6, Random Vancomycin Level 11.3 11/18/18 06:20: Sodium Level [Pending], Potassium Level [Pending], Chloride Level [Pending], Carbon Dioxide Level [Pending], Blood Urea Nitrogen [Pending], Creatinine [ Pending], Estimat Glomerular Filtration Rate [Pending], Glucose Level [Pending] , Calcium Level [Pending], Random Vancomycin Level [Pending] Height (Feet): 5 Height (Inches): 8.00 Weight (Pounds): 148 General Appearance: no apparent distress EENT: normal ENT inspection Neck: normal alignment, supple Cardiovascular: normal rate, regular rhythm Respiratory/Chest: lungs clear, normal breath sounds Abdomen: non tender, soft Edema: no edema noted Arm (L), no edema noted Arm (R), no edema noted Leg (L), no edema noted Leg (R), no edema noted Pedal (L), no edema noted Pedal (R), no edema noted Generalized Urbano Holbrook MD Nov 18, 2018 06:53
[2018-11-18 07:02] LABS: ANION GAP 7 mmol/L (5-15); BLOOD UREA NITROGEN 11 mg/dL (7-18); CALCIUM 8.2 MG/DL (8.5-10.1); CARBON DIOXIDE 26 MMOL/L (21-32); CHLORIDE 104 MMOL/L (98-107); CREATININE 1.4 MG/DL (0.55-1.30); POTASSIUM 4.3 MMOL/L (3.5-5.1); SODIUM 137 MMOL/L (136-145)
--- NOTE | 2018-11-18 07:46 | NUR ---
HAND-OFF: Report given to ANN Qureshi. Endorsed plan of care.
[2018-11-18 08:00] VITALS: BP 110/64
--- NOTE | 2018-11-18 08:13 | NUR ---
NURSE NOTES: pt awake alert, no distress. no sob. no c/o pain. call light within reach. bed in lowest position, locked.
[2018-11-18] MEDS: Ascorbic Acid 500mg tab ORAL SCH ×2 (08:24→18:29)
[2018-11-18] MEDS: Zinc Sulfate 220mg cap ORAL SCH (08:24)
[2018-11-18] MEDS: Morphine Sulfate 2mg/ml Inj(IV/IM USE ONLY) IVP PRN (08:25)
[2018-11-18] MEDS: Zinc Oxide Oint 2oz TOPIC SCH ×3 (09:08→18:34)
[2018-11-18] MEDS ORDERED: Vancomycin 1gm/D5W 275ml IVPB ONE ×2 (10:00)
--- NOTE | 2018-11-18 10:18 | GI Progress Note ---
Assessment/Plan Problems: (1) ESRD (end stage renal disease) on dialysis ICD Codes: N18.6 - End stage renal disease; Z99.2 - Dependence on renal dialysis SNOMED: 570465691 (2) Wound infection ICD Codes: T14.8XXA - Other injury of unspecified body region, initial encounter; L08.9 - Local infection of the skin and subcutaneous tissue, unspecified SNOMED: 88444875 (3) Anemia ICD Codes: D64.9 - Anemia, unspecified SNOMED: 863357112 (4) Wound cellulitis ICD Codes: L03.90 - Cellulitis, unspecified SNOMED: 646744628 (5) Failure to thrive SNOMED: 71179738 Status: unchanged Status Narrative Discussed with Dr. Phelps. Assessment/Plan OB stool negative Will defer EGD and colonoscopy at this time, can be done as outpatient anemia most likely due to the large wound wound care PRN transfusions PPI Follow labs The patient was seen and examined at bedside and all new and available data was reviewed in the patients chart. I agree with the above findings, impression and plan. (Patient seen earlier today. Signature stamp does not reflect patient encounter time.). - Jose Luis Phelps MD Subjective Gastrointestinal/Abdominal: Reports: no symptoms Objective Last 24 Hour Vital Signs Date Time Temp Pulse Resp B/P (MAP) Pulse Ox O2 Delivery O2 Flow Rate FiO2 11/18/18 09:00 Room Air 11/18/18 08:55 98.8 11/18/18 08:00 98.8 83 18 110/64 (79) 98 11/18/18 07:36 66 11/18/18 04:00 58 11/18/18 00:00 74 11/17/18 21:00 Room Air 11/17/18 20:00 82 11/17/18 16:00 98.8 83 18 128/69 (88) 98 11/17/18 16:00 79 11/17/18 12:00 98.5 66 18 110/66 (81) 98 11/17/18 12:00 71 Intake and Output 11/17/18 11/18/18 19:00 07:00 Intake Total 480 ml 200 ml Output Total 1600 ml 750 ml Balance -1120 ml -550 ml Intake Oral 480 ml 200 ml Output Urine Total 1600 ml 750 ml Laboratory Tests Test 11/18/18 06:20 Sodium Level 137 MMOL/L (136-145) Potassium Level 4.3 MMOL/L (3.5-5.1) Chloride Level 104 MMOL/L (98-107) Carbon Dioxide Level 26 MMOL/L (21-32) Anion Gap 7 mmol/L (5-15) Blood Urea Nitrogen 11 mg/dL (7-18) Creatinine 1.4 MG/DL (0.55-1.30) H Estimat Glomerular Filtration Rate > 60 mL/min (>60) Glucose Level 80 MG/DL (74-106) Calcium Level 8.2 MG/DL (8.5-10.1) L Random Vancomycin Level 12.4 ug/mL Height (Feet): 5 Height (Inches): 8.00 Weight (Pounds): 148 General Appearance: WD/WN, no apparent distress, alert, thin Cardiovascular: normal rate Respiratory/Chest: normal breath sounds, no respiratory distress Abdominal Exam: normal bowel sounds, non tender, soft Extremities: non-tender Sanket Gamino NP Nov 18, 2018 10:18
--- NOTE | 2018-11-18 10:48 | Pulmonology Progress Note ---
Assessment/Plan Assessment/Plan IMPRESSION: 1. Large neck wound. 2. Anemia of chronic disease. DISCUSSION: Continue start broad-spectrum antibiotics. S/p transfusion. I will follow carefully. Will need placement DC to SNF Subjective Interval Events: Doing better Constitutional: Reports: no symptoms HEENT: Repors: no symptoms Respiratory: Reports: no symptoms Cardiovascular: Reports: no symptoms Gastrointestinal/Abdominal: Reports: no symptoms Allergies: Coded Allergies: No Known Allergies (Unverified , 08/28/17) Objective Last 24 Hour Vital Signs Date Time Temp Pulse Resp B/P (MAP) Pulse Ox O2 Delivery O2 Flow Rate FiO2 11/18/18 09:00 Room Air 11/18/18 08:55 98.8 11/18/18 08:00 98.8 83 18 110/64 (79) 98 11/18/18 07:36 66 11/18/18 04:00 58 11/18/18 00:00 74 11/17/18 21:00 Room Air 11/17/18 20:00 82 11/17/18 16:00 98.8 83 18 128/69 (88) 98 11/17/18 16:00 79 11/17/18 12:00 98.5 66 18 110/66 (81) 98 11/17/18 12:00 71 Intake and Output 11/17/18 11/18/18 19:00 07:00 Intake Total 480 ml 200 ml Output Total 1600 ml 750 ml Balance -1120 ml -550 ml Intake Oral 480 ml 200 ml Output Urine Total 1600 ml 750 ml General Appearance: no acute distress HEENT: normocephalic Respiratory/Chest: chest wall non-tender Cardiovascular: normal peripheral pulses Microbiology Date/Time Source Procedure Growth Status 11/15/18 16:49 Wound Gram Stain - Final Complete 11/15/18 16:49 Wound Culture - Final Pseudomonas Aeruginosa Staphylococcus Aureus - Mrsa Complete Laboratory Tests 11/18/18 06:20: Sodium Level 137, Potassium Level 4.3, Chloride Level 104, Carbon Dioxide Level 26, Anion Gap 7, Blood Urea Nitrogen 11, Creatinine 1.4H, Estimat Glomerular Filtration Rate > 60, Glucose Level 80, Calcium Level 8.2L, Random Vancomycin Level 12.4 Current Medications Medications (Trade) Dose Ordered Sig/Charla Route PRN Reason Start Time Stop Time Status Last Admin Dose Admin Ascorbic Acid (Vitamin C) 500 mg TWICE A DAY ORAL 11/16/18 18:00 12/16/18 17:59 11/18/18 08:24 Dextrose (Dextrose 50%) 25 ml Q30M PRN IV Hypoglycemia 11/15/18 17:30 12/15/18 17:29 Dextrose (Dextrose 50%) 50 ml Q30M PRN IV Hypoglycemia 11/15/18 17:30 12/15/18 17:29 Famotidine (Pepcid) 40 mg DAILY ORAL 11/16/18 09:00 12/16/18 08:59 11/18/18 08:25 Levofloxacin 100 ml @ 100 mls/hr Q24H IVPB 11/17/18 18:00 11/24/18 17:59 11/17/18 17:16 Morphine Sulfate (Morphine Sulfate) 1 mg Q4H PRN IVP For Pain 11/15/18 17:30 11/22/18 17:29 11/18/18 08:25 Multivitamins (Multivitamins) 1 tab DAILY ORAL 11/17/18 09:00 12/17/18 08:59 11/18/18 08:24 Ondansetron HCl (Zofran) 4 mg Q6H PRN IVP Nausea & Vomiting 11/15/18 17:30 12/15/18 17:29 Vancomycin HCl (Vanco rx to dose) 1 ea DAILY PRN MISC Per rx protocol 11/15/18 17:00 12/15/18 16:59 Vancomycin HCl 1 gm/Dextrose 275 ml @ 183.708 mls/hr ONCE ONCE IVPB 11/18/18 10:00 11/18/18 11:29 11/18/18 10:34 Zinc Oxide (Zinc Oxide) 1 applic THREE TIMES A DAY TOPIC 11/16/18 15:30 12/16/18 15:29 11/18/18 09:08 Zinc Sulfate (Zinc Sulfate) 220 mg DAILY ORAL 11/17/18 09:00 12/17/18 08:59 11/18/18 08:24 Luis E Greene MD Nov 18, 2018 10:48
[2018-11-18] MEDS ORDERED: Vanco pharmacy to dose MISC (10:49)
[2018-11-18 11:25] VITALS: BP 124/78
--- NOTE | 2018-11-18 11:28 | NUR ---
DISCHARGE PLANNING DISCHARGE TO SNF ORDER NOTED SPOKE TO AND FAXED SNF PACKET TO [facility], BROOKE PEREZ WILL SECURE A SNF BED AND CALL THIS BEHAVIOR SUPPORT SPECIALIST BACK DISCHARGE IN PROGRESS Addendum: 11/18/18 at 1250 by JENNY METZGER LVN LVN STILL WAITING FOR SNF TO BE SECURED BY [facility]
[2018-11-18] MEDS ORDERED: Heparin1,000 units/500ml Premix(Conc:2 units/ml) IV PRN (11:30)
[2018-11-18] MEDS ORDERED: Lidocaine 1% Plain 30 ml INJ PRN (11:30)
--- NOTE | 2018-11-18 12:11 | Surgery Progress Note ---
Surgery Progress Note Subjective Additional Comments Patient seen and examined at bedside. No acute events. Comfortable. No complaints. Labs noted. Exam stable Objective Last 24 Hour Vital Signs Date Time Temp Pulse Resp B/P (MAP) Pulse Ox O2 Delivery O2 Flow Rate FiO2 11/18/18 11:25 98.8 71 18 124/78 (93) 98 11/18/18 09:00 Room Air 11/18/18 08:55 98.8 11/18/18 08:00 98.8 83 18 110/64 (79) 98 11/18/18 07:36 66 11/18/18 04:00 58 11/18/18 00:00 74 11/17/18 21:00 Room Air 11/17/18 20:00 82 11/17/18 16:00 98.8 83 18 128/69 (88) 98 11/17/18 16:00 79 I&O Intake and Output 11/17/18 11/18/18 19:00 07:00 Intake Total 480 ml 200 ml Output Total 1600 ml 750 ml Balance -1120 ml -550 ml Intake Oral 480 ml 200 ml Output Urine Total 1600 ml 750 ml Dressing: saturated Wound: other Cardiovascular: RSR Respiratory: clear Abdomen: soft, flat, non-tender, present bowel sounds, non-distended Extremities: no tenderness, no cyanosis Laboratory Tests Test 11/18/18 06:20 Sodium Level 137 MMOL/L (136-145) Potassium Level 4.3 MMOL/L (3.5-5.1) Chloride Level 104 MMOL/L (98-107) Carbon Dioxide Level 26 MMOL/L (21-32) Anion Gap 7 mmol/L (5-15) Blood Urea Nitrogen 11 mg/dL (7-18) Creatinine 1.4 MG/DL (0.55-1.30) H Estimat Glomerular Filtration Rate > 60 mL/min (>60) Glucose Level 80 MG/DL (74-106) Calcium Level 8.2 MG/DL (8.5-10.1) L Random Vancomycin Level 12.4 ug/mL Plan Problems: (1) Failure to thrive (2) Wound cellulitis Assessment & Plan: 58M with posterior neck wound that is chronic non healing and with chronic cellulitis. etiology of wound not know and patient poor historian in regards to wound large area wound open. dressings saturated Pt presented on admission with an atypical wound posterior R neck. Pt unaware of etiology of wound but stated wound was initially very small. Pt also not specific about duration he has had wound. Drsg noted to be saturated with serous non-odorous exudate when removed. Base of wound george with an area thick yellow fibrinous slough noted clockwise between 9-12o'clock,approx 20%. Smaller area of less than 5% in close proximity that is necrotic. Borders are irregular ,indurated with additional openings (L)15cm x (W08.5cm x(D) 2.5cm.Hyperpigmentation periwound. An area that is hyperpigmented tracking into hortensia neck.Pt verbalized previously having wound which had healed prior to developing current wound. Pt verbalized wound is painful and having difficulty moving neck.Pt educated on good hand hygiene and instructed to avoid scratching at skin around wound. very unfortunate case with large wound that has gone without care for so long Tx.Plan: Cleanse wound with Saline.Apply Hydrogel then Xeroform. Apply Calcium Alginate. Apply Zinc Oxide periwound. Cover with Optifoam drsgs. Change Daily and PRN. will monitor wound while in hospital will need long tern outpatient wound care IV Abx (3) Anemia Assessment & Plan: transfuse prn trend h/h appreciate GI input (4) Wound infection (5) ESRD (end stage renal disease) on dialysis Jarod Lala Nov 18, 2018 12:11
--- NOTE | 2018-11-18 12:44 | NUR ---
NURSE NOTES: DR ISABEL AWARE OF MRSA WOUND , NO NEW ORDERS.
--- NOTE | 2018-11-18 13:02 | NUR ---
NURSE NOTES: DR ISABEL AWARE OF HGB TREND, PER MD ITS OK FOR NOW. RN SPOKE TO MD IN PERSON
--- NOTE | 2018-11-18 13:12 | NUR ---
NURSE NOTES: PT AWARE OF DCP TO SNF AFTER PICC PLACEMENT TO RECEIVE IV ABX , RAD DEPT AWARE OF PICC PLACEMENT ORDER
--- NOTE | 2018-11-18 14:37 | NUR ---
RD ASSESSMENT & RECOMMENDATIONS SEE CARE ACTIVITY FOR COMPLETE ASSESSMENT DAILY ESTIMATED NEEDS: Needs based on Wound healing, wt loss, underweight/ 54kg 30-40 kcals/kg 1681-1575 total kcals 1.5-2.0 g protein/kg 81-108 g total protein 25-30 mL/kg 7391-0907 total fluid mLs NUTRITION DIAGNOSIS: Increased kcal/prot needs R/T wound healing, underweight status, wt loss as evidenced by pt admitted w/ large, open neck wound, w/ mild-moderate generalized wasting, @ 78% IBW w/ BMI of 18.3, pt reports significant wt loss of 30lbs/20% in "a couple of months" CURRENT DIET:REGULAR PO DIET RECOMMENDATIONS: REGULAR, DOUBLE PROTEIN PORTIONS ADDITIONAL RECOMMENDATIONS: * Standing wt for accurate CBW, weekly wts given h/o wt loss and low BMI * Wound healing: Add MVI w/ min 1 tab QD, Vit C 500mg BID : ZnSO4 220mg QD X 10 days : Beltran 1pkt BID * Add Ensure Enlive 1 bottle @ 10am (350kcal/20g prot per bottle) * High prot snack @ 2pm * BG low, monitor for hypoglycemia
--- NOTE | 2018-11-18 14:41 | Brief Operative Note ---
Immediate Post Operative Note Operative Note Pre-op Diagnosis: wound infection Procedure: PICC Post-op Diagnosis: same as pre-op Findings: consistent w/pre-op dx studies Surgeon: Sonia IBARRA Anesthesia: local Specimen: none Complications: none Fluids: none Implant(s) used?: Yes - 4F PICC Isaias Ibarra MD Nov 18, 2018 14:41
--- NOTE | 2018-11-18 14:41 | Pre-Procedure Note/Attestation ---
Pre-Procedure Note/Attestation Complete Prior to Procedure Planned Procedure: not applicable Procedure Narrative: PICC Indications for Procedure Pre-Operative Diagnosis: wound infection Attestation I attest that I discussed the nature of the procedure; its benefits; risks and complications; and alternatives (and the risks and benefits of such alternatives ), prior to the procedure, with the patient (or the patient's legal malt liquors sales representative). I attest that, if there was a reasonable possibility of needing a blood transfusion, the patient (or the patient's legal malt liquors sales representative) was given the [facility] standardized written summary, pursuant to the Shiva Pamela Blood Safety Act ([place] Health and Safety Code # 1645, as amended). I attest that I re-evaluated the patient just prior to the surgery and that there has been no change in the patient's H&P, except as documented below: Isaias Ibarra MD Nov 18, 2018 14:41
--- NOTE | 2018-11-18 15:36 | Diagnostic Imaging Report ---
Indications: Needs long-term IV access Technique: Ultrasound confirms patent compressible left brachial vein. Total sterile technique, including sterile probe cover and sterile gel, hat, mask, sterile gown, large sterile drape, and preparation with 2% chlorhexidine utilized. Local anesthesia with 1% lidocaine. Under real-time ultrasound guidance, puncture great vein using 21-gauge needle, documented and archived, passage 0.018 guidewire under direct fluoroscopy, which was used to determine appropriate catheter length, exchange for 4 [place] peel-away sheath. 4 [place] Bard dual-lumen power PICC cut to 47 cm. It was inserted through the peel-away sheath. Peel-away sheath and guidewire removed. Catheter fixed to the skin. Both catheter ports aspirated and flushed. Patient tolerated procedure well, without immediate complication. Digital radiograph documents satisfactory catheter tip position, at the cavoatrial junction. Total fluoroscopy time 9.6 seconds. Total dose area product 0.69 mGy Total number of images: 1 Impression: Successful placement of left arm PICC under sonographic and fluoroscopic guidance, as described above.
--- NOTE | 2018-11-18 15:36 | NUR ---
*-* INSURANCE *-* ALL CLINICALS HAVE BEEN FAXED TO: IPA: ANA CARRANZA P:[phone] F:[phone] (FAX CLINICALS)
--- NOTE | 2018-11-18 19:21 | NUR ---
NURSE NOTES: Called Mohamud Marino to give report, report given to chi. Pt IV and ID band removed, vitals WNL, pt Ox4 calm and cooperative, no s/s of distress or sob noted. pt left with transportation team
[2018-11-18] MEDS ORDERED: Dyna-Hex 2% Top Sol 2oz TOPIC SCH (20:00)
--- NOTE | 2018-11-19 09:26 | NUR ---
*-* INSURANCE *-* DISCHARGE SUMMARY HAS BEEN FAXED TO: IPA: ANA CARRANZA P:[phone] F:[phone] (FAX CLINICALS)
--- NOTE | 2018-11-19 09:47 | Discharge Summary ---
Discharge Summary Discharge Summary _ DATE OF ADMISSION: 11/15/2018 DATE OF DISCHARGE: 11/18/2018 DISCHARGED BY: Dr. Luis E Greene CONSULTANTS: Dr. Jarod Holbrook BRIEF HOSPITAL COURSE: Patient is a 58-year-old male, who presented to ED for a wound check. Patient has a history of a wound on the upper back and neck area. He had a chronic ulcer that was not healing. He stated it became progressively worse. He was not getting any treatment with outpatient wound management. He also complained of weakness. He denied any fever, nausea, vomiting, diarrhea or chills. On evaluation at the ED, patient was tachycardic with heart rate 115. Blood pressure was stable. Blood work showed severe anemia with hemoglobin of 3.7 and hematocrit 15. There was no leukocytosis. Electrolytes were normal. BUN 12, creatinine was elevated to 1.5. X-ray of the C-spine showed limited study due to flexion of neck. There was large area of ulceration and evidence of cellulitis in the posterior part of the neck. Difficult to exclude possibility of osteomyelitis involving the posterior elements in the lower part of the cervical spine. Patient was then admitted for evaluation of anemia, wound cellulitis and failure to thrive. Patient was admitted to telemetry. He was started on blood transfusion. GI was consulted. Diet was advanced. Anemia work-up was initiated. He was given proton pump inhibitors. Kidney function was monitored. Patient presented with acute kidney injury, most likely secondary to severe intravascular volume depletion from anemia and dehydration. He was given IV hydration. He received total 3 units packed RBC blood transfusion. Dr. Jarod Lala was consulted for evaluation of wound. Etiology of wound was not known. He was given wound care. He was recommended need for long-term outpatient wound care. Wound culture showed growth of MRSA and Pseudomonas. He was eventually started on vancomycin and levofloxacin. Stool OB was negative. Per GI, recommended endoscopy can be done as outpatient. Hemoglobin level went up to 7 posttransfusion. Patient has chronic kidney disease stage IIIb. Creatinine was stable. Patient required SNF placement to continue antibiotic treatment. A PICC line was inserted to the left arm. Patient was eventually transferred to [place]. FINAL DIAGNOSES: Severe anemia status post blood transfusion CKD stage IIIb Dehydration Neck wound cellulitis and infection, present on admission Protein calorie malnutrition DISPOSITION: DC SNF. DISCHARGE MEDICATIONS: Refer to Discharge Medication List. I have been assigned to complete a discharge summary on this account, I was not involved with the patient's management. Sonal Deleon NP Nov 19, 2018 09:47
--- NOTE | 2018-11-22 13:23 | NUR ---
*-* INSURANCE *-* DISCHARGE SUMMARY HAS BEEN FAXED TO: IPA: ANA CARRANZA P:[phone] F:[phone] (FAX CLINICALS)
== END 2018-11-18 18:45 | DRG 383 ==
LOC: EDBEDREQSVC 11:15 → EMR 11:55 → EDBEDREQ 12:44 → 2E 13:44 → EDBEDREQ 13:55
PROC: 30233N1 Transfusion of Nonautologous Red Blood Cells into Peripheral Vein, Percutaneous Approach (ICD-10-PCS; principal; 2018-11-15)
PROC: 02HV33Z Insertion of Infusion Device into Superior Vena Cava, Percutaneous Approach (ICD-10-PCS; 2018-11-18)
DX: L03.221 Cellulitis of neck (principal); N17.9 Acute kidney failure, unspecified; E46 Unspecified protein-calorie malnutrition; N18.3 Chronic kidney disease, stage 3 (moderate); S11.90XA Unspecified open wound of unspecified part of neck, initial encounter; X58.XXXA Exposure to other specified factors, initial encounter; Z68.1 Body mass index [BMI] 19.9 or less, adult; D63.8 Anemia in other chronic diseases classified elsewhere; E86.0 Dehydration; B95.62 Methicillin resistant Staphylococcus aureus infection as the cause of diseases classified elsewhere; B96.5 Pseudomonas (aeruginosa) (mallei) (pseudomallei) as the cause of diseases classified elsewhere; F17.200 Nicotine dependence, unspecified, uncomplicated; R62.7 Adult failure to thrive
CPT/HCPCS: 36415; 36569; 72040; 76937; 80048; 80053; 80202; 82248; 82270; 82378; 82607; 82728; 82746; 82962; 83540; 83550; 84439; 84443; 85007; 85025; 85044; 85610; 85730; 86850; 86900; 86901; 86920; 87070; 87181; 87205; 96365; 99291

== ENCOUNTER 2019-01-06 17:05 | Emergency (ER) | payer MEDICAID ==
[~2019-01-06] VITALS: Ht 172.7 cm; Wt 59.0 kg
[~2019-01-06 17:05] MED LIST changes: +NKM; +Vanco pharmacy to dose MISC
[2019-01-06 17:30] VITALS: BP 152/82
--- NOTE | 2019-01-06 17:30 | NUR ---
ED Nurse Note: pt walked in to ED due open wound on back of neck for long times. per pt, has it for yrs. pt [facility] to [facility] last month and discharge to home. per pt, no follow up after discharge. clear discharge noted. no pus. no odor. AAO x4. respirations even and non-labored noted. skin warm to touch. on quality assurance monitor chassis.
[2019-01-06 18:39] VITALS: BP 138/81
[2019-01-06 18:40] LABS: EOSINOPHILS % (AUTO) 1.1 % (0.0-3.0); HEMATOCRIT 31.2 % (42.0-52.0); HEMOGLOBIN 9.3 G/DL (14.2-18.0); MEAN CORPUSCULAR VOLUME 72 FL (80-99); MONOCYTES % (AUTO) 4.9 % (1.0-10.0); PLATELET COUNT 502 K/UL (150-450); RED BLOOD COUNT 4.32 M/UL (4.70-6.10); RED CELL DISTRIBUTION WIDTH 24.3 % (11.6-14.8); WHITE BLOOD COUNT 12.9 K/UL (4.8-10.8)
[2019-01-06 18:42] LABS: ANION GAP 8 mmol/L (5-15); BLOOD UREA NITROGEN 10 mg/dL (7-18); CARBON DIOXIDE 29 MMOL/L (21-32); CHLORIDE 101 MMOL/L (98-107); CREATININE 1.6 MG/DL (0.55-1.30); POTASSIUM 3.9 MMOL/L (3.5-5.1); SODIUM 138 MMOL/L (136-145)
[2019-01-06 18:47] LABS: ALANINE AMINOTRANSFERASE 7 U/L (12-78); ALBUMIN 2.5 G/DL (3.4-5.0); ALBUMIN/GLOBULIN RATIO 0.4 (1.0-2.7); ALKALINE PHOSPHATASE 89 U/L (46-116); ASPARTATE AMINO TRANSFERASE 14 U/L (15-37); BILIRUBIN,TOTAL 0.3 MG/DL (0.2-1.0)
--- NOTE | 2019-01-06 18:58 | NUR ---
HAND-OFF: Report given to ANN Quintana.ED Nurse Note:
--- NOTE | 2019-01-06 19:00 | NUR ---
Report received from ANN Walter. pt seen in bed, friend by bed side. VSS.
[2019-01-06] MEDS ORDERED: Vancomycin 1 GM in NS 275 ML IVPB ONE (20:30)
[2019-01-06 20:43] VITALS: BP 135/76
--- NOTE | 2019-01-06 21:18 | Emergency Room Report ---
History of Present Illness General Chief Complaint: Skin Rash/Abscess Source: Patient Present Illness HPI This patient states that he has had an ongoing neck wound. He had been discharged to a rehab facility and was undergoing antibiotics. He was supposed to return to the clinic for IV antibiotics and he never did it. He presents with concern that the wound has not been healing. He is also concerned as he has not been getting wound care that it could be worsening and infected. He states he is unable to arrange transportation to the clinic which is why he did not get or complete the IV antibiotics as instructed. Allergies: Coded Allergies: No Known Allergies (Unverified , 08/28/17) Patient History Past Medical History: see triage record, other - wound infection that required surgical debridement. Social History: Denies: smoking, alcohol use, drug use Reviewed Nursing Documentation: PMH: Agreed; PSxH: Agreed Nursing Documentation-PMH Past Medical History: No History, Except For Hx Neurological Problems: No Review of Systems All Other Systems: negative except mentioned in HPI Physical Exam Vital Signs Date Time Temp Pulse Resp B/P (MAP) Pulse Ox O2 Delivery O2 Flow Rate FiO2 01/06/19 17:15 98.4 97 17 152/82 (105) 93 Room Air Sp02 EP Interpretation: reviewed, normal General Appearance: no apparent distress, alert, GCS 15, non-toxic Head: normocephalic, atraumatic Eyes: bilateral eye normal inspection, bilateral eye PERRL ENT: hearing grossly normal, normal pharynx, no angioedema, normal voice Neck: full range of motion, other - Large wound of posterior neck, with pink granulation tissue. Surrounding erythema. Respiratory: chest non-tender, lungs clear, normal breath sounds, no respiratory distress, no retraction, no accessory muscle use, speaking full sentences Cardiovascular #1: regular rate, rhythm, no edema Gastrointestinal: normal bowel sounds, non tender, soft, non-distended, no guarding, no rebound Rectal: deferred Musculoskeletal: back normal, gait/station normal, normal range of motion, non- tender Neurologic: alert, oriented x3, responsive, motor strength/tone normal, sensory intact, speech normal Psychiatric: judgement/insight normal, memory normal, mood/affect normal, no suicidal/homicidal ideation Skin: other - See above in neck exam. Medical Decision Making Diagnostic Impression: Primary Impression: Non-healing non-surgical wound ER Course This patient has a very large nonhealing wound of the posterior neck. I am concerned about the surrounding infection. The patient has not been getting wound care and did not finish his course of antibiotics. Concerned that the patient's home living situation is not safe and he needs a better plan with wound care and follow-up close to his home. Overall, he is nontoxic without evidence of sepsis. He is admitted for further treatment of his nonhealing neck wound. Laboratory Tests Test 01/06/19 18:08 White Blood Count 12.9 K/UL (4.8-10.8) H Red Blood Count 4.32 M/UL (4.70-6.10) L Hemoglobin 9.3 G/DL (14.2-18.0) L Hematocrit 31.2 % (42.0-52.0) L Mean Corpuscular Volume 72 FL (80-99) L Mean Corpuscular Hemoglobin 21.6 PG (27.0-31.0) L Mean Corpuscular Hemoglobin Concent 29.9 G/DL (32.0-36.0) L Red Cell Distribution Width 24.3 % (11.6-14.8) H Platelet Count 502 K/UL (150-450) H Mean Platelet Volume 4.6 FL (6.5-10.1) L Neutrophils (%) (Auto) 79.0 % (45.0-75.0) H Lymphocytes (%) (Auto) 14.0 % (20.0-45.0) L Monocytes (%) (Auto) 4.9 % (1.0-10.0) Eosinophils (%) (Auto) 1.1 % (0.0-3.0) Basophils (%) (Auto) 1.0 % (0.0-2.0) Sodium Level 138 MMOL/L (136-145) Potassium Level 3.9 MMOL/L (3.5-5.1) Chloride Level 101 MMOL/L (98-107) Carbon Dioxide Level 29 MMOL/L (21-32) Anion Gap 8 mmol/L (5-15) Blood Urea Nitrogen 10 mg/dL (7-18) Creatinine 1.6 MG/DL (0.55-1.30) H Estimate Glomerular Filtration Rate 53.9 mL/min (>60) Glucose Level 111 MG/DL (74-106) H Calcium Level 9.0 MG/DL (8.5-10.1) Total Bilirubin 0.3 MG/DL (0.2-1.0) Aspartate Amino Transferase (AST) 14 U/L (15-37) L Alanine Aminotransferase (ALT) 7 U/L (12-78) L Alkaline Phosphatase 89 U/L (46-116) Total Protein 8.4 G/DL (6.4-8.2) H Albumin 2.5 G/DL (3.4-5.0) L Globulin 5.9 g/dL Albumin/Globulin Ratio 0.4 (1.0-2.7) L Last Vital Signs Date Time Temp Pulse Resp B/P (MAP) Pulse Ox O2 Delivery O2 Flow Rate FiO2 01/06/19 20:43 98.2 79 15 135/76 100 Room Air Status: improved Disposition: ADMITTED INPATIENT Condition: Stable Referrals: [facility],REFERR[facility] (PCP) Darlene Escalera DO Jan 06, 2019 21:18
--- NOTE | 2019-01-06 23:28 | NUR ---
called [facility]. report given to ANN Walker.
[2019-01-07 00:19] VITALS: BP 120/73
--- NOTE | 2019-01-07 00:19 | NUR ---
ER DISCHARGE NOTE: [facility] unit # [id number] ambulance arrived. Pt was then transfered to [facility] via gurney in stable contion. VSS. pt took all his belongings.
== END 2019-01-07 00:19 | disposition short-term general hospital (02) ==
LOC: EMR 18:55 → EDBEDREQ 20:53 → EMR 01-07 00:19
DX: T81.89XA Other complications of procedures, not elsewhere classified, initial encounter (principal); Y83.8 Other surgical procedures as the cause of abnormal reaction of the patient, or of later complication, without mention of misadventure at the time of the procedure; Y92.9 Unspecified place or not applicable
CPT/HCPCS: 36415; 80053; 85025; 96365; 99284; J3370; J7050

== ENCOUNTER 2019-05-09 17:08 | Emergency (ER) | payer MEDICAID ==
[~2019-05-09] VITALS: Ht 172.7 cm; Wt 59.0 kg
[2019-05-09 17:45] VITALS: BP 145/85
--- NOTE | 2019-05-09 17:45 | NUR ---
ED Nurse Note: Patient arrived ambulating from home c/o right sided neck wound. Wound appears granulated with pink wound bed, goes from mid neck down to mid back area. Patient AxO x 4, no s/s of acute distress.
[2019-05-09] MEDS ORDERED: Omnipaque-300 100ml vial INJ PRN (18:00)
[2019-05-09 18:56] LABS: BASOPHILS % (AUTO) 1.2 % (0.0-2.0); EOSINOPHILS % (AUTO) 2.3 % (0.0-3.0); HEMATOCRIT 27.9 % (42.0-52.0); HEMOGLOBIN 8.3 G/DL (14.2-18.0); LYMPHOCYTES % (AUTO) 14.2 % (20.0-45.0); MEAN CORPUSCULAR VOLUME 67 FL (80-99); MONOCYTES % (AUTO) 6.3 % (1.0-10.0); PLATELET COUNT 354 K/UL (150-450); RED BLOOD COUNT 4.15 M/UL (4.70-6.10); RED CELL DISTRIBUTION WIDTH 19.6 % (11.6-14.8); WHITE BLOOD COUNT 8.2 K/UL (4.8-10.8)
[2019-05-09 19:13] LABS: ANION GAP 4 mmol/L (5-15); BLOOD UREA NITROGEN 16 mg/dL (7-18); CALCIUM 8.7 MG/DL (8.5-10.1); CARBON DIOXIDE 32 MMOL/L (21-32); CHLORIDE 102 MMOL/L (98-107); CREATININE 1.1 MG/DL (0.55-1.30); POTASSIUM 4.2 MMOL/L (3.5-5.1); SODIUM 138 MMOL/L (136-145)
[2019-05-09 19:17] LABS: ALANINE AMINOTRANSFERASE 14 U/L (12-78); ALBUMIN 2.6 G/DL (3.4-5.0); ALBUMIN/GLOBULIN RATIO 0.5 (1.0-2.7); ALKALINE PHOSPHATASE 72 U/L (46-116); ASPARTATE AMINO TRANSFERASE 13 U/L (15-37); BILIRUBIN,TOTAL 0.5 MG/DL (0.2-1.0)
--- NOTE | 2019-05-09 19:31 | NUR ---
HAND-OFF: Report given to Brian JUAREZ.
--- NOTE | 2019-05-09 19:35 | NUR ---
ED Nurse Note: Received patient from ANN Vargas. patient at no distress at this time. will wait for further orders
--- NOTE | 2019-05-09 20:41 | Emergency Room Report ---
History of Present Illness General Chief Complaint: General Complaint Source: Patient (Jet Amaya) Present Illness HPI 58-year-old male with history of tobacco smoke and a chronic wound on the posterior neck times more than 1 year here complaining of worsening of neck deformity due to the wound the posterior neck. Patient was last seen at [facility] in January 2019, the wound was infected at this time however at this time it is not infected and patient denies any pain. Patient reports that the deformity of the neck is new x2 weeks however based on his last visit and his previous photographs here at [facility] patient had a same level of deformity of the neck. Denies any fall or injury. Patient reports that he has a nurse that comes to his home and checks the wound and give some medication to be infected. However patient does not have a wound care doctor and does not go to see his primary care physician. At this time patient has a stable vital signs, denies fever and chills, and pain. (Jet Amaya) Allergies: Coded Allergies: No Known Allergies (Unverified , 08/28/17) Patient History Past Medical History: see triage record Past Surgical History: unable to obtain Pertinent Family History: unable to obtain Social History: Reports: smoking Immunizations: UTD Reviewed Nursing Documentation: PMH: Agreed; PSxH: Agreed (Jet Amaya) Nursing Documentation-PMH Past Medical History: No History, Except For Hx Neurological Problems: No (Jet Amaya) Review of Systems All Other Systems: negative except mentioned in HPI (Jet Amaya) Physical Exam Vital Signs Date Time Temp Pulse Resp B/P (MAP) Pulse Ox O2 Delivery O2 Flow Rate FiO2 05/09/19 17:17 98.6 108 19 150/87 (108) 98 Room Air Sp02 EP Interpretation: reviewed, normal General Appearance: no apparent distress, alert, GCS 15, non-toxic, mild distress Head: normocephalic, atraumatic Eyes: bilateral eye normal inspection, bilateral eye PERRL ENT: hearing grossly normal, EOM grossly intact, normal pharynx Neck: no carotid bruits, other - deformity in a bent position, due to posterior neck wound Respiratory: chest non-tender, lungs clear, normal breath sounds, no rhonchi, no respiratory distress, no retraction, no wheezing, speaking full sentences Cardiovascular #1: regular rate, rhythm, no edema, no murmur, normal capillary refill Cardiovascular #2: 2+ carotid (R), 2+ carotid (L) Gastrointestinal: normal bowel sounds, non tender, soft, non-distended, no guarding, no rebound Rectal: deferred Genitourinary: no CVA tenderness Musculoskeletal: back normal, digits/nails normal Neurologic: alert, motor strength/tone normal, oriented x3, sensory intact, responsive, speech normal Psychiatric: judgement/insight normal, memory normal, mood/affect normal, no suicidal/homicidal ideation Skin: other - open wound posterior neck Lymphatic: no adenopathy (Jet Amaya) Medical Decision Making PA Attestation All my diagnosis and treatment plans were reviewed ad discussed with my supervising physician Dr. Guerrero (Jet Amaya) PA Attestation Patient was seen and evaluated by myself as well At this time patient was complaining of forward flexion and tilting of his head to the side which has been continued to worsen over the past several months and he feels worsening over the past 2 weeks Denies any fevers or chills denies any headache denies any upper extremity weakness Review of medical records reveals recent presentation with admission to the hospital Photographs of the wound at that time also shows that at this time the area has significantly improved Previous review of patient's C-spine x-ray also reveals the patient in flexion and rotated positioning CT imaging today reveals multiple abnormalities I did also speak to radiology who raise question about an area in the epidural region Given the patient's exam today I do not feel that there is any obvious, acute pathology to the patient's presentation There is significant comorbidity and chronicity present Patient reports that he has follow-up with his primary physician upcoming Patient requires review of previous imaging such as MRI/previous CTs with comparison with today's imaging for more extensive evaluation He remains neurologically/neurovascularly intact And requires improved outpatient follow-up (Rosie Guerrero DO) Diagnostic Impression: Primary Impression: Open neck wound Additional Impression: Neck mass ER Course 58-year-old male with history of tobacco smoke and a chronic wound on the posterior neck times more than 1 year here complaining of worsening of neck deformity due to the wound the posterior neck. Patient was last seen at [facility] in January 2019, the wound was infected at this time however at this time it is not infected and patient denies any pain. Patient reports that the deformity of the neck is new x2 weeks however based on his last visit and his previous photographs here at [facility] patient had a same level of deformity of the neck. Denies any fall or injury. Patient reports that he has a nurse that comes to his home and checks the wound and give some medication to be infected. However patient does not have a wound care doctor and does not go to see his primary care physician. At this time patient has a stable vital signs, denies fever and chills, and pain. Ddx considered but are not limited to : Cellulitis, gangrene wound, open wound , neck mass Vital signs: are WNL, pt. is afebrile H&PE are most consistent with: Open neck wound chronic, neck mass ORDERS: CBC, CMP, CT neck without contrast based on labs findings of creatinine ED INTERVENTIONS: Wound clean and dressed, neck soft collar could not fit around the neck due to patient deformity DISCHARGE: At this time pt. is stable for d/c to home. Will provide printed patient care instructions, and any necessary prescriptions. Care plan and follow up instructions have been discussed with the patient prior to discharge. Patient to follow-up with his wound care as well as to be seen by a neurosurgeon based on findings on CT scan of the neck patient has a chronic mass that is compressing over the vertebrae and is not acute and does not require hospitalization at this time (Jet Amaya) CT/MRI/US Diagnostic Results CT/MRI/US Diagnostic Results : Imaging Test Ordered: CT neck Impression CT NECK With Contrast: Findings There is a abnormal appearance to the posterior right neck with loss of tissue including muscle mass as well as portions of the lamina posteriorly on the vertebral bodies. There is suggestion epidural effacement with thecal sac displaced anteriorly and to the left at C6-7. Whether this represents sequela of ongoing infectious process, inflammatory tissue or scarring extending into the epidural space versus a sequela of surgical intervention cannot be adequately differentiated . This same level has a chronic subluxation with bridging syndesmophyte. There is some apical bulla and blebs bilaterally in the lungs with pleural thickening and the suggestion of apical fibrobullous replacement of the right lung. Impression: abnormal soft tissue defect posterior right side of the cervical spine with loss of the posterior elements of the vertebral bodies. There is mass extending into the canal into the epidural space displacing the cord anteriorly to the left this is of uncertain etiology. This could represent post inflammatory process including granulation tissue or scarring, an acute infectious process, postoperative change or intervention. (Jet Amaya) Last Vital Signs Date Time Temp Pulse Resp B/P (MAP) Pulse Ox O2 Delivery O2 Flow Rate FiO2 05/09/19 17:45 98.4 95 17 145/85 98 Room Air (Jet Amaya) Disposition: HOME, SELF-CARE Condition: Stable Referrals: [facility],REFERRING (PCP) Patient Instructions: Soft Tissue Injury of the Neck, [id number], Wound Care Additional Instructions: Follow-up with your wound care doctor in order to take care of your wound. Your wound has been there for a long time and is healing compared to the last time that you have ER. The fact that you cannot straighten your neck as because it was compressing on your vertebrae. This is chronic and needs to be taken care of by wound doctor. Jet Amaya May 09, 2019 20:41 Rosie Guerrero DO May 09, 2019 20:52
--- NOTE | 2019-05-09 20:46 | Diagnostic Imaging Report ---
Indication: Neck pain and stiffness, open wound on right side of neck Technique: No IV contrast utilized, per referring physician request and due to poor renal function. Spiral acquisitions obtained through the neck Multiplanar reconstructions were generated. Total dose length product 290 mGycm. CTDIvol(s) 10 mGy. Radiation dose was minimized using automated exposure control Comparison: Plain radiographs dated 11/15/2018 Findings: The patient is hyperlordotic. This somewhat limits evaluation as optimal reconstructions could not be obtained. There is marked soft tissue swelling in the posterior lateral right neck. This demonstrates surface ulceration. The area of swelling demonstrates soft tissue rather than fluid attenuation, measures approximately 8.8 cm oblique transverse by approximately 10 cm craniocaudad by 3 cm in thickness. No definite central lucency Ulceration extends nearly to the surface of the cervical spine at the C5-T2 levels. There is thickening of the right C6, C7, T1 laminae, and evidence of chronic destructive changes of the C3-C2 spinous processes. Invasion of tissue into the spinal canal of the lower cervical spine is possible. The right-sided posterior neck musculature appears asymmetrically atrophied. Most of it appears to be consumed by the abnormal tissue. No definite cervical adenopathy demonstrated. The thyroid is unremarkable. The nasopharynx, hypopharynx, larynx are unremarkable. There is minimal sinus disease. In addition to the bony abnormality described above, there is widening of the posterior C6-7 disc space. The right inferior C6 and superior C7 facets are the included, , and do not articulate. There is also erosion of the right inferior C7 and superior T1 facets, which likewise do not articulate. The remaining disc spaces are preserved. No acute fractures. No dislocations. There is evidence of extensive chronic dental disease. There is extensive chronic erosive change of the alveolar ridge of the maxilla. There is bilateral maxillary sinus disease. There is evidence of considerable fibrosis involving the right upper lung. Bullous changes are seen both lung apices Impression: Extensive abnormality of the posterolateral right neck, with combination of superficial ill-defined soft tissue mass superiorly, extensive chronic appearing tissue loss with ulceration inferiorly. There is extensive associated chronic appearing bony abnormality, with considerable destructive change of the posterior elements of the mid to lower cervical spine as detailed above. Findings likely relate persistent chronic inflammatory process with scar tissue superiorly, tissue loss inferiorly. No definite abscess demonstrated, although evaluation for such is limited in the absence of IV contrast. Correlation with clinical findings is recommended. Contrast MRI may be useful for better characterization. Other findings as noted This agrees with the preliminary interpretation provided overnight by [facility]. The CT scanner at [facility] is accredited by the [employer] and the scans are performed using protocols designed to limit radiation exposure to as low as reasonably achievable to attain images of sufficient resolution adequate for diagnostic evaluation.
[2019-05-09 21:35] VITALS: BP 126/86
--- NOTE | 2019-05-09 21:35 | NUR ---
ED Nurse Note: pt cleared to be d/c per ER provider, discharge paperwork with aftercare instruction along with CT results provided by ER PA, pt education done, pt advised to follow up with pcp or return to ed if changes in condition, vss, ambulatory w/steady gait, left w/ allbelongings, pt provided w/ taxi.
== END 2019-05-09 21:35 | disposition home or self-care (01) ==
LOC: EMR 18:10
DX: S11.90XA Unspecified open wound of unspecified part of neck, initial encounter (principal); R22.1 Localized swelling, mass and lump, neck; X58.XXXA Exposure to other specified factors, initial encounter; Y92.9 Unspecified place or not applicable; F17.200 Nicotine dependence, unspecified, uncomplicated
CPT/HCPCS: 36415; 70490; 80053; 85025; Z7502; 99284